=== PATIENT | male | born 1955 | race Caucasian/White ===

== ENCOUNTER 2024-07-16 15:45 | Outpatient (CLI) | payer MEDICARE, BC, SELFPAY ==
--- NOTE | ~2024-07-16 | CT_ITS ---
EXAMINATION: CT knee RT wo con DATE: 07/16/2024 16:00 INDICATION: Broken internal joint prosthesis at the right knee TECHNIQUE: High resolution computed tomography (CT) of the right knee was performed without intraveno us contrast. Additional sagittal and coronal reconstructions were performed. Automated exposure contr ol and iterative reconstruction technique were employed. The dose-length product was 435.91 mGy-cm. COMPARISON: None FINDINGS: Medial unicompartmental arthroplasty at the right knee. The alignment of the axis of the tibial compo nent is rotated 13 degree externally relative to the axis of the femoral component. Increased lucency underlying the posterior aspect of the tibial component through which passes bridging bone spicules arguing against loosening. There is no abnormal lucency along the margin of the femoral component. Th ere is a large infiltrate appearing lytic lesion with narrow zone of transition with thin corticated margins occupying the majority the posterior half of the lateral femoral condyle which measures 5.1 x 4.1 x 3.7 cm. There is interruption of the overlying lateral cortex of the femoral condyle near the expected site of insertion of the popliteal tendon and fibular collateral ligament suggests this repr esents a large intraosseous ganglion cyst. No fracture. Subtle chondrocalcinosis is seen at the later al compartment. Mild osteoarthritis in the medial and patellofemoral compartments and at the proximal tibiofibular articulation. Minimal knee joint effusion at the suprapatellar pouch. IMPRESSION: 1. Right knee medial unicompartmental arthroplasty with some increased lucency at the posterior donte n of the tibial component but without evident loosening. 2. Large likely intraosseous ganglion cyst occupying the majority of the posterior half of the latera l femoral condyle. 2. Chondrocalcinosis at the lateral compartment with mild osteoarthritis in the medial and lateral co mpartments. Reviewed, dictated and finalized at location A. IMPRESSION: 1. Right knee medial unicompartmental arthroplasty with some increased lucency at the posterior margin of the tibial component but without evident loosening. 2. Large likely intraosseous ganglion cyst occupying the majority of the teacher assistant ior half of the lateral femoral condyle. 2. Chondrocalcinosis at the lateral compartment with mild osteoarthritis in the medial and lateral compartments.
--- OUTSIDE RECORDS SUMMARY | 2024-07-16 15:48 | XMS_ITS | Data Portability ---
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 Recent endoscopy showed grade 1 esophageal varices with no high risk stigmata for bleeding. There were no other bleeding lesions in the past. Patient felt dizzy and lightheaded when he had the hematemesis and subsequent melena. He is somewhat better today, stable, not orthostatic, although appears currently pale. On examination patient was alert and oriented x3, not in apparent distress, well groomed, normal apparent judgment and memory. Moist mucous membranes with pale conjunctiva and anicteric sclera. No respiratory distress. Abdomen non-distended. No lower extremity edema. Skin is dry. Normal affect. Assessment/Андрей n: Hematemesis and melena, upper GI bleeding. Given absence of any findings on endoscopy recently except for grade 1 esophageal varices, a repeat endoscopy will be done and if again no bleeding lesions are found, varices would be banded as there would be the most likely culprit for this recurrent upper GI bleeding. However, repeat EGD might show a lesion not seen on previous endoscopy and then it would be treated accordingly. Patient has been n.p.o. and he is not on any blood thinners, EGD is scheduled for later today. fernanda Not available 03/15/2024 11:27:17 Plan of Treatment Reminders Order Date Submit Date Provider Last Modified By Organization Details Last Modified Time Details Appointments None record ed. Lab None record ed. Referral None record ed. Procedures None record ed. Surgeries None record ed. Imaging None record ed. Medication Orders None record ed. Patient TargetsNo targets recorded. Patient InstructionsNo instructions recorded. Reason for Referral None Reported. Results Created Date Observation Date Name Description Value Unit Range Abnormal Flag Note LastModifiedBy Organization Detail LastModifiedTime 03/15/1903/15/2024 CBC CBC Not Available [facility] [address] [place] [address], [id number], 03/15/2024 15:54:43 03/15/19 25 03/15/2024 CBC WBC 3.6 K/uL 4.8- 10.8 low Not Available [facility] [address] [place] [address], [id number], 03/15/2024 15:54:43 03/15/1903/15/2024 CBC RBC 2.34 M/uL 4.70-6 .10 low Not Available [facility] [address] [place] [address], [id number], 03/15/2024 15:54:43 03/15/19 25 03/15/2024 CBC HGB 6.3 g/dL 14.0-1 8.0 critical low Not Available [facility] [address] [place] [address], [id number], 03/15/2024 15:54:43 03/15/1903/15/2024 CBC HCT 19.3 % 42.0-5 2.0 low Not Available [facility] [address] [place] [address], [id number], 03/15/2024 15:54:43 03/15/1903/15/2024 CBC MCV 82.5 fL 80.0-9 4.0 Not Available [facility] [address] [place] [address], [id number], 03/15/2024 15:54:43 03/15/1903/15/2024 CBC MCH 26.9 pg 27.0- 31.0 low Not Available [facility] [address] [place] [address], [id number], 03/15/2024 15:54:43 03/15/19 25 03/15/2024 CBC MCHC 32.6 g/dL 32.0-3 6.0 Not Available [facility] [address] [place] [address], [id number], 03/15/2024 15:54:43 03/15/19 25 03/15/2024 CBC RDW-SD 62.3 fL 35.1 - 46.3 high Not Available [facility] [address] [place] [address], [id number], 03/15/2024 15:54:43 03/15/19 25 03/15/2024 CBC plt 100 K/uL 130-40 0 low Not Available [facility] [address] [place] [address], [id number], 03/15/2024 15:54:43 03/15/19 25 03/15/2024 CBC MPV 11.1 fL 7.5- 11.8 Moder ate targe t cells Sligh t aniso cytos is Sligh t hypoc hroma shanell Sligh t polyc hroma shanell Plate lets appea r decre ased Not Available [facility] [address] [place] [address], [id number], 03/15/2024 15:54:43 03/15/19 25 03/15/2024 hepat ic funct ion panel , serum liver function panel Not Available [facility] [address] [place] [address], [id number], 03/15/2024 16:01:03 03/15/19 25 03/15/2024 hepat ic funct ion panel , serum albumin 3.4 g/dL 3.5-5. 3 low Not Available [facility] [address] [place] [address], [id number], 03/15/2024 16:01:03 03/15/19 25 03/15/2024 hepat ic funct ion panel , serum direct bilirubin 0.7 mg/dL 0.1-0. 5 high Not Available [facility] [address] [place] [address], [id number], 03/15/2024 16:01:03 03/15/19 25 03/15/2024 hepat ic funct ion panel , serum indirect bilirubin 1.0 mg/dL 0.1-0. 6 high Not Available [facility] [address] [place] [address], [id number], 03/15/2024 16:01:03 03/15/19 25 03/15/2024 hepat ic funct ion panel , serum total bilirubin 1.7 mg/dL 0.2-1. 0 high Not Available [facility] [address] [place] [address], 72674, 03/15/2024 16:01:03 03/15/19 25 03/15/2024 hepat ic funct ion panel , serum ALP 102 U/L 44 - 127 Not Available [facility] [address] [place] [address], 30671, 03/15/2024 16:01:03 03/15/19 25 03/15/2024 hepat ic funct ion panel , serum AST (SGOT) 46 U/L 10-40 high Not Available [facility] [address] [place] [address], 21415, 03/15/2024 16:01:03 03/15/19 25 03/15/2024 hepat ic funct ion panel , serum ALT (SGPT) 32 U/L 8-35 Not Available [facility] [address] [place] [address], 42108, 03/15/2024 16:01:03 03/15/19 25 03/15/2024 hepat ic funct ion panel , serum total protein 5.7 g/dL 6.4-8. 3 low Not Available [facility] [address] [place] [address], [address], 03/15/2024 16:01:03 03/15/19 25 03/15/2024 PT/IN R protime panel 2 Not Available [facility] [address] [place] [address], 49373, 03/15/2024 16:24:15 03/15/19 25 03/15/2024 PT/IN R prothrombin 14.7 secon ds 9.7-12 .2 high Not Available [facility] [address] [place] [address], 86[address], 03/15/2024 16:24:15 03/15/19 25 03/15/2024 PT/IN R INR 1.3 INR INTER PRETA TION 2.0-3 .0 FOR DEEP VEIN THROM BOSIS PULMO NARY EMBOL ISM ACUTE MYOCA RDIAL INFAR CTION ATRIA L FIBRI LLATI ON 3.0-4 .5 FOR MECHA NICAL HEART VALVE S Not Available [facility] [address] [place] [address], 898[address], 03/15/2024 16:24:15 03/15/19 25 03/19/2024 surgi danya patho logy study tissue exam biopsy [facility] [address],[facility] [place] [address] Ph. [phone] Marilee Sam MD, PhD, Medic al Direc tor CHAMP BARROW MD nt: MARILEE BRAND [facility] e ID: [id number] Repor t Statu s: Final :0 1955 Case #: [id number] Age: 68 Y Gende r: M Date Colle cted: 03/15 MRN # : [id number] Date Recei anusha: 03/15 Repor jeanette Date: 03/19 FINAL DIAGN OSIS: Stoma ch, biops y: - Mild chron ic inact fabian gastr itis with focal intes tinal metap lasia - Negat fabian for H. pylor i by immun ohist ochem ical stain Elect thais Guerrero ied by Chun Chin MD Elect thais manning 03/19 17:52 SPECI MEN SOURC E: Stoma ch, biops y GROSS DESCR IPTIO N: The speci men conta iner( s) and requi sitio n have the same patie nt name. Recei anusha in 10% neutr al buffe red forma sherly for forma sherly-f ixed paraf fin-e mbedd ed secti ons label ed A, gastr ic biops y rule out H. pylor i are four fragm ents of andres- wong soft tissu e that are 0.3-0 .6 cm in great est dimen aneudy. The speci men is entir jennie submi tted for histo logic study in one casse tte. CLINI DANYA INFOR MATIO N: Upper GI bleed ing, melen a. Not Available [facility] [address] [place] [address], [id number], 03/19/2024 18:55:37 03/15/19 25 03/15/2024 gluco se, finge rstic k, blood Blood Glucose: mg/dl 108 Not Available Admini str[facility] ([facility]) [address] [place] [address], [phone], 03/15/2024 14:37:27 03/15/19 25 03/15/2024 gluco se, finge rstic k, blood Blood Glucose: mg/dl 95 Not Available Admini strativ e Office (Mi) [address] [place] [address], [phone], 03/15/2024 14:02:50 04/29/19 25 04/29/2024 gluco se, finge rstic k, blood Blood Glucose: mg/dl 160 Not Available Admini strativ e Office ([facility]) [address] [place] [address], [phone], 04/29/2024 13:45:38 04/29/19 25 04/29/2024 gluco se, jessi rsnando k, blood Blood Glucose: mg/dl 164 Not Available Admini strativ e Office (Mi) [address] [facility], [place], [phone], 04/29/2024 12:36:22 05/24/19 25 09/03/2022 CT, abdom en + pelvi s, w/o contr ast No observ ation record ed. [email or web address] Not Available 2024 07:21:59 05/24/19 25 04/10/2023 upper endos copy (EGD) with colon oscop y (PROC ) No observ ation record ed. [email or web address] Not Available 2024 07:27:52 Result Notes None recorded. Problems Name Problem SNOMED Code Status Onset Date Resolution Date Notes Provider Name and Address Organization Details Recorded Time Black feces 544082331 Active 2023 Tosin Pisano APRN, DNP, [employer] [address] [place] [address], [phone], [facility] 4 16:57:48 Anemia 427613408 Active 2023 Fina [facility] 4 17:15:03 Melena 7008242 Active 2023 [facility] 4 17:14:41 Iron deficiency anemia 82070700 Active 2023 Tosin Pisano APRN, DNP, [employer] [address] [place] [address], [phone], [facility] 4 18:39:13 Gastroesophage al reflux disease 115500885 Active 2023 Tosin Pisano APRN, DNP, [employer] [facility] [address] [place] [address], [phone], [facility] 4 18:41:52 Hematemesis 5033679 Active 2024 Deirdre German turk, [facility] 5 11:25:26 Bleeding esophageal varices 07095098 Active 2024 [facility] 13:23:50 Problem Notes None recorded. Procedures Surgical History None recorded. Imaging Results Imaging Date Name Status LastModified by Organiz ation Details LastModified Time 09/03/2022 CT, abdomen + pelvis, w/o contrast completed Information not available 05/23/2024 07:21:59 04/10/2023 upper endoscopy (EGD) with colonoscopy (PROC) completed Information not available 05/23/2024 07:27:52 Procedure Notes None recorded. Medical Equipment None Reported. Allergies No known drug allergies Medications Name Sig Start Date Stop Date Status Note LastModified by Organization Details LastModified Time accu-chek ollie guide active Not Available Not Available Not Available metformin 500 mg tablet active Not Available Not Available No t Available carvedilol 6.25 mg tablet active Not Available Not Available Not Available fluconazole 150 mg tablet 01/04 completed Not Available Not Available Not Available amoxicillin 875 mg tablet 1 (one) tablet by mouth two times daily 01/04 completed Not Available Not Available Not Available pantoprazole 40 mg tablet,delaye d release 01/04 completed Not Available Not Available Not Available furosemide 20 mg tablet active Not Available Not Available No t Available cefuroxime axetil 500 mg tablet active Not Available Not Available Not Available levofloxacin 750 mg tablet TAKE 1 TABLET BY MOUTH DAILY 01/04 completed Not Available Not Available Not Available fluticasone propionate 50 mcg/actuation nasal spray,suspens ion 01/04 completed Not Available Not Available Not Available GaviLyte-G 236 gram-22.74 gram-6.74 gram-5.86 gram oral solution 01/04 completed Not Available Not Available Not Available Accu-Chek Fastclix Lancet Drum active Not Available Not Available Not Available Vitals Date Recorded Body height Body mass index (BMI) Body weight Heart rate Oxygen saturation Oxygen saturation in Arterial blood by Pulse oximetry Systolic blood pressure Diastolic blood pressure Provider Name and Address Organization Details Last Updated DateTime 5 185.42 cm 32.8 kg/m2 041620. 06 g 64 /min 97 % 97 % 126 mm[Hg] 60 mm[Hg] Fina Moreno [facility] 5 10:55:02 Social History Question Answer Notes LastModified by Organizat ion Details LastModified Time Tobacco Smoking Status Never Smoker Fina Moreno [facility] 03/15/2024 10:55:12 Smokeless Tobacco? Currently Chews Tobacco gayle Information not available 01/02/2024 Sex: Unknown Functional Status None recorded. Mental Status None recorded. Family History Nothing Reported. Medical History No medical history recorded. Past Encounters Encounter ID Performer Location Encounter Start Date Encounter Closed Date Diagnosis/Indication Diagnosis SNOMED-CT Code Diagnosis ICD10 Code Diagnosis Note [id number] Tosin Pisano, CLINICAL DATA RESEARCH, DNP, [employer] [facility] Gastroent erology ([place]) [address] [place] [phone] 01/02/2024 15:31:42 01/02/2024 17:33:07 Black feces 312121765 K92.1 Iron defic iency anemia 63241176 D50.9 Gastroesop hageal reflux disease 039337741 K21.9 [id number] Champ Henderson MD [facility] Gastroent erology ([place]) [address] [place] [phone] 01/05/2024 14:43:52 01/08/2024 12:10:59 [id number] MD [facility] [address] [place] [phone] 3 01/05/2024 14:43:50 01/12/2024 15:54:15 [id number] Champ Henderson MD [address] Gastroent erology ([place]) [address] [place] [phone] 3 03/15/2024 10:32:20 03/15/2024 12:09:28 [id number] MD Nicol Ramos [facility] S [address] [place] [phone] 3 03/15/2024 12:14:51 03/20/2024 13:41:04 [id number] Champ Henderson MD [facility] Gastroent erology ([place]) [address] [place] [address], [address] [place] [phone] 03/15/2024 12:14:52 03/20/2024 11:45:58 [id number] Champ Henderson MD [facility] Gastroent erology ([place]) [address] [place] [address], [address] [place] [phone] 3 04/29/2024 11:48:17 05/02/2024 09:12:46 [id number] Cash Cohen MD [facility] GI Anesthesi a S [address] [place] [phone] 3 04/29/2024 11:48:15 05/08/2024 10:03:50 Health Concerns Section Related Observation LastModified by Organization Detai ls LastModified Time None Recorded Concern Status LastModified by Organization Details LastModified Time None Recorded Advance Directives Directive None Recorded Payers Insurance Date Sequence Insurance Name Policy Number Policy Moran Covered Member ID Moran Member ID Guarantor Name 05/08/2024 2 [place] [id number] Marilee Nicholson Griffiths [id number] Marilee Valero Griffiths 04/24/2024 1 [place] Marilee Nicholson Griffiths [id number] Marilee Valero Griffiths Notes Date Note Type Note Provider Name and Address Organization Details Recorded Time 5 text/html [facility] PRE-ANESTHETIC EVALUATIONReported bypatient.Reason for Visit:PROPOSED PROCEDURE: EGD with Dialatation; SURGEON: Beatriz; PREOP DIAGNOSIS: Dysphagia. Review of Systems General:Exercise tolerance moderate; Denies SOB, AMBROCIO, PND; Denies chest pain or chest tightness; Obesity Cardiac:Hypertension Endo:NIDDM Prior Anesthetic Complication:no history of anesthesia complications Family Anesthetic Hx:no history of anesthesia complications Physical Exam: AirwayWNL; MP II TeethWNL NeckWNL; Full range of motion CardiovascularRegular rate and rhythm RespiratoryClear to auscultation bilaterally GastrointestinalNPO status >6 hrs solids, >2 hrs clear liquids Vital Signs:Vital signs reviewed. Please refer to nursing preop note for values Assessment:ASA PS: II Plan:MAC Discussion:I have discussed with the patient the anesthetic plan, alternatives, pertinent risks, and complications; including but not limited to PONV, dental injury, sore throat, AK, stroke, etc. All questions were answered. Patient verbalize(s) understanding and agree(s) to proceed. Niurka Fuentes MD [address] [place] [address], [phone], [facility] 03/15/2024 13:32:17 5 text/html Reason for visit: Referring provider: Previous history of MRSA {{Y N*}} Previous history VRE {{Y N*}} Previous history of Cdiff {{Y N*}} Blood Thinners? {{Y N*}} {{If yes, list medications:}} Diabetic? {{Y* N}} {{If yes, list medications: metformin# }} Latex Allergy? {{Y N*}} Champ Henderson MD [facility], [phone] 03/15/2024 11:27:35 5 text/html [facility] OP HPIReported bypatient.The history and physical review:The history and physical dated has been reviewed, the patient has been examined and no change has occurred in the patient's condition since the history and physical was completed. Pre-Procedure Diagnosis:I85.01 Date of Procedure:04/29/2024 Proposed Procedure/Surgery:EGD Physician Performing the Procedure:Champ Henderson Proposed Anesthetic:Monitored Care Chief Complaint:I85.01 Esophageal varices with bleeding Allergies:NKDA Tobacco, Alcohol or Drug use:No Tobacco use; No Drug use Champ Henderson MD [address] [place] [address], [phone], [facility] 04/29/2024 12:06:57 5 text/html [facility] PRE-ANESTHETIC EVALUATIONReported bypatient.Reason for Visit:PROPOSED PROCEDURE: EGD; SURGEON: Beatriz; PREOP DIAGNOSIS: Esophageal varices with bleeding- General:Exercise tolerance moderate; Denies SOB, AMBROCIO, PND; Denies chest pain or chest tightness; Obesity Cardiac:No Hx of CAD; Hypertension Pulmonary:Respiratory system at baseline Endo:NIDDM Prior Anesthetic Complication:no history of anesthesia complications Family Anesthetic Hx:no history of anesthesia complications Physical Exam: AirwayMP III; Limited mouth opening; Moustache TeethWNL NeckFull range of motion; Thick neck circumference CardiovascularRegular rate and rhythm RespiratoryClear to auscultation bilaterally; No wheeze noted GastrointestinalNPO status >6 hrs solids, >2 hrs clear liquids Vital Signs:Vital signs reviewed. Please refer to nursing preop note for values Assessment:ASA PS: II Plan:MAC Discussion:I have discussed with the patient the anesthetic plan, alternatives, pertinent risks, and complications; including but not limited to PONV, dental injury, sore throat, AK, stroke, etc. All questions were answered. Patient verbalize(s) understanding and agree(s) to proceed. Rustam Cohen MD [address] [place] [address], [phone], [facility] 04/29/2024 12:16:07
--- OUTSIDE RECORDS SUMMARY | 2024-07-16 15:48 | XMS_ITS | Clinical Summary ---
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 Active Misc. Devices (COMMODE 3-IN-1) MiscIndications :Injury of left ankle, initial encounter,Left fibular fracture,Orthop edic aftercare Use daily. Expected length of use minimum of 6 weeks. Ht. 6f2i Wt: 246lb 1 each 2 Active Misc. Devices (WHEELCHAIR) MiscIndications :Injury of left ankle, initial encounter,Left fibular fracture,Orthop edic aftercare Use daily. Expected length of use minimum of 6 weeks. Elevating leg lift required to decrease edema to lower extremity. Ht. 6f2i Wt: 246lb 1 each 2 Active Misc. Devices (WHEELCHAIR) MiscIndications :Injury of left ankle, initial encounter,Left fibular fracture,Orthop edic aftercare Use daily. Expected length of use minimum of 6 weeks. Standard wheelchair with elevating leg lift on LEFT side required to decrease edema to lower extremity. Ht. 6f2i Wt: 246lb 1 each 2 Active metFORMIN 500 MG tablet Take 1 tablet (500 mg total) by mouth daily with breakfast. 2 Active carvedilol (COREG) 6.25 MG tablet Take 2 tablets (12.5 mg total) by mouth 2 (two) times daily. Active pantoprazole EC (PROTONIX) 40 MG tablet Take 1 tablet (40 mg total) by mouth 2 (two) times daily before meals. 60 tablet 5 Active sucralfate (CARAFATE) 1 GM/10ML suspension Take 10 mLs (1 g total) by mouth 4 (four) times daily before meals and nightly. 420 mL 5 Active Active Problems Problem Noted Date Diagnosed Date GI bleed 03/15/2024 Thrombocytopenia 04/06/2022 Other specified anemias 04/06/2022 Other cirrhosis of liver (CMS/HCC [facility]/HCC) 04/06 Aftercare following surgery 06/04/2021 Encounters Date Type Department Care Team Description 07/08/2024 2:30 PM CDT Office Visit [place] [address] [address] Lydia Arana APNP Follow Up (Thrombocytopenia/) ; Lab Results 07/08/2024 1:30 PM CDT - 07/08/2024 11:59 PM CDT Hospital Encounter [facility] [address] [address] Lydia Arana APNP Discharge Disposition: Home or Self Care (Routine Discharge) 07/08/2024 Orders Only [facility] [place] [address] Seamus Perkins MD 07/08/2024 Orders Only [facility] [place] [address] Seamus Perkins MD 07/08/2024 Travel 05/13/2024 Orders Only [facility] [place] [address] [address] Lydia Arana APNP 05/13/2024 Telephone [facility] [place] [address] [address] Seamus Perkins MD Reschedule 04/22/2024 11:[address] CLERK - 04/22/2024 3:[address] CLERK [facility] [place] [address] Bere Canales, DO Hypotension Discharge Disposition: Home or Self Care (Routine Discharge) 04/22/2024 Travel from Last 3 Months Family History Medical History Relation Comments No Known Problems Father Cancer Mother lung Relation Status Comments Father Mother Social History Tobacco Use Types Packs/Day Years Used Date Smoking Tobacco: Never Smokeless Tobacco: Current Chew Tobacco Cessation:Ready to Q uit: Not Asked; Counseling Given: Not Answered Alcohol Use Standard Drinks/Week Comments Yes 0 (1 standard drink = 0.6 oz pur e alcohol) 4-5 beers a day B1300 Health Literacy Answer Date Recor ded How often do you need to hav e someone help you when you read instructions, pamphlets, or other written material from your doctor or pharmacy? Never 03/16/2024 [facility] Utilities Answer Date Recorded In the past 12 months has e Keep Your Pharmacy Open, gas, oil, or water [facility] threatened to shut off services in your home? No 03/16/2024 Humiliation, Afraid, Rape, and Kick questionnair e Answer Date Recorded Within the last year, have y ou been afraid of your partner or ex-partner? No 03/16/2024 Within the last year, have y ou been humiliated or emotionally abused in other ways by your partner or ex-partner? No Within the last year, have y ou been kicked, hit, slapped, or otherwise physically hurt by your partner or ex-partner? No 03/16/2024 Within the last year, have y ou been raped or forced to have any kind of sexual activity by your partner or ex-partner? No 03/16/2024 Social Connection and Isolat ion Panel [NHANES] Answer Date Recorded In a typical week, how many times do you talk on the phone with family, friends, or neighbors? More than three times a week 03/16/2024 How often do you get togethe r with friends or relatives? More than three times a week 03/16/2024 How often do you attend chur ch or nondenominational services? Never 03/16/2024 Do you belong to any clubs o r organizations such as moravian groups, unions, fraternal or athletic groups, or school groups? No 03/16/2024 How often do you attend meet ings of the clubs or organizations you belong to? Never 03/16/2024 Are you , , di vorced, , never , or living with a partner? 03/16/2024 AUDIT-C Answer Date Recorded Q1: How often do you have a drink containing alcohol? Never 03/16/2024 Q2: How many drinks containi ng alcohol do you have on a typical day when you are drinking? Patient does not drink Q3: How often do you have si x or more drinks on one occasion? Never 03/16/2024 Overall Financial Resource Strain (CARDIA) Answe r Date Recorded How hard is it for you to pa y for the very basics like food, housing, medical care, and heating? Not hard at all 03/16/2024 [facility] [place] of Occupat ional Health - Occupational Stress Questionnaire Answer Date Recorded Do you feel stress - tense, restless, nervous, or anxious, or unable to sleep at night because your mind is troubled all the time - these days? Not at all 03/16/2024 Hunger Vital Sign Answer Date Recorded Within the past 12 months, y ou worried that your food would run out before you got the money to buy more. Never true 03/16/19 25 Within the past 12 months, t he food you bought just didn't last and you didn't have money to get more. Never true 03/16/2024 PRAPARE - Transportation Answer Date Re corded In the past 12 months, has l ack of transportation kept you from medical appointments or from getting medications? No 03/06 In the past 12 months, has l ack of transportation kept you from meetings, work, or from getting things needed for daily living? No 03/16/2024 Housing Stability Vital Sign Answer Wayne e Recorded In the last 12 months, was t here a time when you were not able to pay the mortgage or rent on time? No 03/16/2024 In the past 12 months, how m any times have you moved where you were living? 0 03/16/2024 At any time in the past 12 m [facility], were you homeless or living in a jail (including now)? No 03/16/2024 Sex and Gender Information Value Date Recorded Sex Assigned at Male 04/22/2024 11:[address] CLERK Legal Sex Male 9:[address] CLERK Gender Identity Not on file Sexual Orientation Not on file Last Filed Vital Signs Vital Sign Reading Time Taken Comments Blood Pressure 149/76 07/08/2024 2:09 PM CDT Pulse 69 07/08/2024 2:09 PM CDT Temperature 36 C (96.8 F) 07/08/2024 2:09 PM CDT Respiratory Rate 20 07/08/2024 2:09 PM CDT Oxygen Saturation 100% 07/08/2024 2:09 PM CDT Inhaled Oxygen Concentration - - Weight 110.4 kg (243 lb 6.4 oz) 07/08/2024 2:09 PM CDT Height 188 cm (6' 2 ) 07/08/2024 2:09 PM CDT Body Mass Index 31.25 07/08/2024 2:09 PM CDT Plan of Treatment Upcoming Encounters Date Type Department Care Team (Late st Contact Info) Description 10/09/2024 9:00 AM CDT Appointment [facility] [place] [address] Seamus Perkins MD [address], [place] [id number] 01/08/2025 1:[address] CLERK Appointment [facility] [place] [address] [address] Seamus Perkins MD [address], [place] [id number] 01/08/2025 2:[address] CLERK Office Visit [facility] [place] [address] Seamus Perkins MD [address], [place] [address] Health Maintenance Due Date Last Done Comments DTaP, Tdap and Td Vaccines ( 1 - Tdap) 1974 Pneumococcal Vaccine: 50+ Years (1 of 2 - PCV) 1974 Zoster Vaccines (1 of 2) 2005 RSV Immunization or 60+ Years (1 - Risk 60-74 years 1-dose series) 2015 Annual Medicare Wellness Visit 2020 COVID-19 Vaccine (2 - 2023-2 5 season) 2023 03/16/2021 Colorectal Cancer Screening Colonoscopy (10 Years) 10/23/2030 10/23/2020, 10/23/2020 Hepatitis C Completed 02/20/2023, 02/20/2023 Meningococcal B Vaccine Aged Out No l onger eligible based on patient's age to complete this topic Meningococcal Vaccine Aged Out No mary patric eligible based on patient's age to complete this topic RSV Immunizations Under 20 Months Aged Out No longer eligible b ased on patient's age to complete this topic Medical Devices Implanted Type Area Director Workers Compensation Device Identifier Shelf Expiration Date Model / Serial / Lot Knee Components Knee Components Plate [id number] Titanium 5 Hole Lock Low Profile Variax Bone 16x1.3mm Fibula Lateral Nonsterile - [id number] Implanted:Qty: 1 on 05/24/2021 by Grant Powell MD at [facility] Plate Left: Ankle [employer] [id number] / / Screw Locking Velarde T10 3.5 X 16mm - [id number] Implanted:Qty: 4 on 05/24/2021 by Grant Powell MD at [facility] Screw Left: Ankle [employer]AR[employer] [id number] / / Screw Locking Velarde T10 3.5 X 18mm - [id number] Implanted:Qty: 1 on 05/24/2021 by Grant Powell MD at [facility] Screw Left: Ankle [employer] Z[employer] [id number] / / Screw Bone 3.5mm 16mm Variax Titanium T10 Full Thread Foot Ankle Self Tap Nonsterile Yellow Lock Plate System - [id number] Implanted:Qty: 3 on 05/24/2021 by Grant Powell MD at [facility] Screw Left: Ankle [employer] Z[employer] [id number] / / Cement Bone 20/10 Fast Set Depuy - [id number] Implanted:Qty: 1 on 05/08/2018 by Buddy Flynn MD at [facility] Left: Knee [employer] - A [employer] M[employer]LL[employer] 09/02/2020 [id number] / / [id number] Screw Headless Mis Denise 48mm - [id number] Implanted:Qty: 1 on 05/08/2018 by Buddy Flynn MD at [facility] Left: Knee [employer] 11/04/2027 [id number] / / [id number] Screw Headed Denise 48mm - [id number] Implanted:Qty: 1 on 05/08/2018 by Buddy Flynn MD at [facility] Left: Knee [employer] 12/04/2027 [id number] / / [id number] Persona Partianl Knee System Vivacit-E Highly Crosslinked Polyethylene Partial Articular Surface Left Medial Implanted:Qty: 1 on 05/08/2018 by Buddy Flynn MD at [facility] Left: Knee 02/02/2023 [id number] / / [id number] Persona Partial Knee System Partial Tibial Cemented Size G Left Medial Implanted:Qty: 1 on 05/08/2018 by Buddy Flynn MD at [facility] Left: Knee [employer] 07/04/2027 [id number] / / [id number] Persona Partial Knee System Partial Femur Cemented Size 6 Left Medial Implanted:Qty: 1 on 05/08/2018 by Buddy Flynn MD at [facility] Left: Knee [employer] 08/04/2027 [id number] / / [id number] Explanted Type Area Director Workers Compensation Device Identifier Shelf Expiration Date Model / Serial / Lot Persona Partial Knee System Articular Surface Chore Worker Tip Explanted:Qty: 1 on 05/08/2018 by Buddy Flynn MD at [facility] Left: Knee [employer] 09/02/2022 [id number] / / [id number] Drill Bit Ao Dai 2.6 Mm X 135 Mm Scaled Explanted:Qty: 1 on 05/24/2021 at [facility] Left: Ankle [id number] / / Procedures Procedure Name Priority Date/Time Associated Diagnosis Comments FERRITIN Routine 07/08/2024 1:56 PM CDT Thrombocytopenia IRON SAT PANEL (IRON,IBC,%SAT) Routine 07/08/2024 1:56 PM CDT Thrombocytopenia COMPREHENSIVE METABOLIC PANEL Routine 07/08/2024 1:56 PM CDT Thrombocytopenia CBC W/DIFF AUTOMATED Routine 07/08/2024 1:56 PM CDT Thrombocytopenia CTA CHEST PE PROTOCOL STAT 04/22/2024 1:[address] CLERK XR CHEST PORTABLE STAT 04/22/2024 11: [address] CLERK TYPE & SCREEN STAT 04/22/2024 11:[address] CLERK PRO-BRAIN NATRIURETIC PEPTIDE STAT 04/22/2024 11:[address] CLERK MAGNESIUM STAT 04/22/2024 11:[address] CLERK LACTIC ACID W REFLEX (SEPSIS) STAT 04/22/2024 11:[address] CLERK TROPONIN, QUANT STAT 04/22/2024 11:[address] CLERK HEPATIC FUNCTION PANEL STAT 11:[address] CLERK BASIC METABOLIC PANEL STAT 04/22/2024 11:[address] CLERK D-DIMER, QUANTITATIVE STAT 04/22/2024 11:[address] CLERK CBC W/DIFF AUTOMATED STAT 04/22/2024 11:[address] CLERK ECG 12-LEAD Routine 04/22/2024 11:[address] CLERK COLONOSCOPY 10/23/2020 7:48 AM CDT from Last 3 Months or Most Recently Relevant to Health Maintenance Results * IRON SAT PANEL (IRON,IBC,%SAT) (07/08/2024 1:56 PM CDT) IRON 131 65 - 175 MCG/DL 07/08/2024 3:04 PM CDT [facility] IRON BINDING CAPACITY 378 250 - 450 MCG/DL 07/08/2024 3:04 PM CDT [facility] IRON SATURATION 35 % 3:04 PM CDT [facility] Comment:REFERENCE RANGE NOT ESTABLISHED 07/08/2024 1:56 PM CDT us Lydia [facility] Final Res ult [facility] [address] [place] [address], * (ABNORMAL) COMPREHENSIVE METABOLIC PANEL (07/08/2024 1:56 PM CDT) SODIUM S/P/B 138 136 - 145 MMOL/L 07/08/2024 2:29 PM CDT [facility] POTASSIUM S/P/B 4.1 3.5 - 5.1 MMOL/L 07/08/2024 2:29 PM CDT [facility] CHLORIDE S/P/B 106 98 - 107 MMOL/L 07/08/2024 2:29 PM CDT [facility] CO2 26.9 21.0 - 32.0 MMOL/L 07/08/2024 2:29 PM CDT [facility] GLUCOSE 252(H) 70 - 99 MG/DL 07/08/2024 2:29 PM CDT [facility] Comment: FASTING GLUCOSE 100 TO 125 MG/DL IS CONSISTENT WITH IMPAIRED FASTING GLUCOSE. FASTING GLUCOSE >125 MG/DL IS CONSISTENT WITH DIABETES. RANDOM GLUCOSE >200 MG/DL WITH HYPERGLYCEMIC SYMPTOMS IS CONSISTENT WITH DIABETES. PER ADA GUIDELINES BUN 13 6 - 24 MG/DL 07/08/2024 2:29 PM CDT [facility] CREATININE S/P/B 0.74 0.70 - 1.30 MG/DL 07/08/2024 2:29 PM CDT [facility] CALCIUM S/P/B 9.0 8.4 - 10.5 MG/DL 07/08/2024 2:29 PM [facility] BILIRUBIN TOTAL S/P/B 2.3(H) 0.2 - 1.0 MG/DL 07/08/2024 2:29 PM [facility] Comment: THIS ASSAY IS NOT RECOMMENDED FOR PATIENTS UNDERGOING TREATMENT WITH ELTROMBOPAG DUE TO THE POTENTIAL FOR FALSELY ELEVATED RESULTS. ALKALINE PHOSPHATASE S/P/B 137(H) 45 - 115 U/L 07/08/2024 2:29 PM T [facility] AST 36 15 - 37 U/L 07/08/2024 2:29 PM [facility] ALT 35 16 - 63 U/L 07/08/2024 2:29 PM [facility] TOTAL PROTEIN S/P/B 6.9 6.4 - 8.2 G/DL 07/08/2024 2:29 PM [facility] ALBUMIN S/P/B 3.1(L) 3.4 - 5.0 G/DL 07/08/2024 2:29 PM [facility] ANION GAP 5.1 5.0 - 15.0 MMOL/L 07/08/2024 2:29 PM [facility] OSMOLALITY (CALC) 295 MOSM/KG 025 2:29 PM [facility] Comment:REFERENCE RANGE NOT ESTABLISHED GFR ESTIMATE >90 >89 ML/MIN/1. 73 M2 07/08/2024 2:29 PM [facility] GFR NOTES GFR REFERENCE S: 07/08/2024 2:29 PM [facility] Comment: THE ESTIMATED GFR IS CALCULATED USING THE 2020 CKD-EPI EQUATION. THE FOLLOWING CATEGORIES FOR GRADING RENAL FUNCTION ARE RECOMMENDED BY THE INTERNATIONAL SOCIETY OF NEPHROLOGY (KDIGO 2012 CLINICAL PRACTICE GUIDELINE). G1,NORMAL OR HIGH: >89 ml/min/1.73 m2 G2,MILDLY DECREASED: 60-89 ml/min/1.73 m2 G3A,MILDLY TO MODERATELY DECREASED: 45-59 ml/min/1.73 m2 G3B,MODERATELY TO SEVERELY DECREASED: 30-44 ml/min/1.73 m2 G4,SEVERELY DECREASED: 15-29 ml/min/1.73 m2 G5,KIDNEY FAILURE: <15 ml/min/1.73 m2 07/08/2024 1:56 PM CDT us Lydia [facility]ARCIANP [facility] Final Res ult [facility] [address] [place] [address], * (ABNORMAL) CBC W/DIFF AUTOMATED (07/08/2024 1:56 PM CDT) Only the most recent of2 resultswithin the time period is included. WBC 3.65(L) 4.00 - 10.80 x10'3/uL 07/08/2024 2:12 PM CDT [facility] RBC 3.79(L) 4.50 - 6.10 x10'6/uL 07/08/2024 2:12 PM CDT [facility] HGB 10.2(L) 13.0 - 18.0 G/DL 07/08/2024 2:12 PM CDT [facility] HCT 30.4(L) 37.0 - 52.0 % 07/08/2024 2:12 PM CDT [facility] MCV 80.2 78.0 - 100.0 FL 07/08/2024 2:12 PM CDT [facility] MCH 26.9(L) 27.0 - 31.0 PG 07/08/2024 2:12 PM CDT [facility] MCHC 33.6 33.0 - 36.0 G/DL 07/08/2024 2:12 PM CDT [facility] RDW 28.4(H) 11.5 - 14.5 % 07/08/2024 2:12 PM CDT [facility] PLT 86(L) 150 - 350 x10'3/uL 07/08/2024 2:12 PM CDT [facility] MPV RESULTS NOT AVAILABLE 7.4 - 10.4 FL 07/08/2024 2:12 PM CDT [facility] CBC COMMENT NORMAL REFERENCE RANGE NOT ESTABLISHED FOR THE PROPORTIONAL LEUKOCYTE DIFFERENTIAL. 07/08/2024 2:12 PM CDT [facility] NEUTROPHILS % 49.8 % 07/08/2024 2:34 PM CDT [facility] LYMPHOCYTES % 25.8 % 07/08/2024 2:34 PM CDT [facility] MONOCYTES % 16.7 % 07/08/2024 2:34 PM CDT [facility] EOSINOPHILS % 6.0 % 07/08/2024 2:34 PM CDT [facility] BASOPHILS % 1.4 % 07/08/2024 2:34 PM CDT [facility] IMMATURE GRANS % 0.3 % 07/09/19 25 2:34 PM CDT [facility] NRBC % 0.0 % 07/08/2024 2:34 PM CDT [facility] ABS. NEUTROPHILS 1.82 1.60 - 8.30 x10'3/uL 07/08/2024 2:34 PM CDT [facility] ABS. LYMPHOCYTES 0.94 0.80 - 4.70 x10'3/uL 07/08/2024 2:34 PM CDT [facility] ABS. MONOCYTES 0.61 0.00 - 1.50 x10'3/uL 07/08/2024 2:34 PM CDT [facility] ABS. EOSINOPHILS 0.22 0.00 - 0.40 x10'3/uL 07/08/2024 2:34 PM CDT [facility] ABS. BASOPHILS 0.05 0.00 - 0.20 x10'3/uL 07/08/2024 2:34 PM CDT [facility] ABS. IMMATURE GRANULOCYTES 0.01 0.00 - 0.03 x10'3/uL 07/08/2024 2:34 PM CDT [facility] ABS. NUCLEATED RBC'S 0.00 0.00 - 0.01 x10'3/uL 07/08/2024 2:34 PM CDT [facility] PLT MORPH. NORMAL 07/08/2024 2:34 PM CDT [facility] RBC MORPHOLOGY 2+ 07/08/2024 2:34 PM CDT [facility] Comment: HYPOCHROMASIA 2+ ANISOCYTOSIS 07/08/2024 1:56 PM CDT Lydia R Waltrip APNP LABORATORY Final Res ult Performing Organization Address [facility]/ZIP Co de Phone Number [facility] [address] [place] [id number], * FERRITIN (07/08/2024 1:56 PM CDT) FERRITIN 42.7 26 - 388 NG/ML 07/08/2024 2:29 PM CDT [facility] 07/08/2024 1:56 PM CDT Lydia R adRiseramiroip APNP LABORATORY Final Res ult Performing Organization Address [facility] de Phone Number [facility] [address] [place] [id number], * CTA CHEST PE PROTOCOL (04/22/2024 1:[address] CLERK) Anatomical Region Laterality Modality Chest Computed Tomogra phy 04/22/2024 1:[address] CLERK Impressions 04/22/2024 1:[address] CLERK IMPRESSION: 1. No acute intrathoracic process identified. Negative for pulmonary embolism as described. 2. Redemonstrated findings of cirrhosis. Referred By: Interpreted By: Emre Birmingham MD, 04/22/2024 1:37 PM Narrative 04/22/2024 1:[address] CLERK [address] [place] [address] Examination: CTA chest. Exam time: 1312 hours. Clinical history: Syncope. Dizziness. Hypotension. Elevated d-dimer. Comparison: Noncontrast CT of the abdomen and pelvis, 03/24/2023. Technique: Thin section spiral axial scans were acquired through the chest during the administration of intravenous contrast for evaluation of the great vessels. Coronal, sagittal and 3-D MIP coronal reconstructions were performed from the data set. A dose lowering technique was used for this procedure, which may include, but is not limited to, dose reduction techniques, automated exposure control, the use of iterative reconstruction and ALARA/Image Gently techniques. Findings: Motion and suboptimal bolus timing limit assessment of the pulmonary arteries beyond the main and lobar branches. Within this limitation, no pulmonary embolism is identified. There is minor atherosclerotic calcification of the aorta and arch vessels. The heart and great vessels are otherwise unremarkable. There is a punctate calcified right hilar lymph node, compatible with old granulomatous disease. No hilar or mediastinal adenopathy is identified. No endobronchial abnormality is identified. Allowing for the respiratory motion, the lungs are grossly clear. There is no pleural effusion or pneumothorax. The chest wall structures appear intact. The included sections through the upper abdomen show no acute process. Changes of cirrhosis are again evident. Procedure Note Emre Birmingham MD - 04/22/2024 [facility] [address] [place] [address] Examination: CTA chest. Exam time: 1312 hours. Clinical history: Syncope. Dizziness. Hypotension. Elevated d-dimer. Comparison: Noncontrast CT of the abdomen and pelvis, 03/24/2023. Technique: Thin section spiral axial scans were acquired through the chestduring the administration of intravenous contrast for evaluation of thegreat vessels. Coronal, sagittal and 3-D MIP coronal reconstructions wereperformed from the data set. A dose lowering technique was used for thisprocedure, which may include, but is not limited to, dose reductiontechniques, automated exposure control, the use of iterativereconstruction and ALARA/Image Gently techniques. Findings: Motion and suboptimal bolus timing limit assessment of thepulmonary arteries beyond the main and lobar branches. Within thislimitation, no pulmonary embolism is identified. There is minoratherosclerotic calcification of the aorta and arch vessels. The heartand great vessels are otherwise unremarkable. There is a punctatecalcified right hilar lymph node, compatible with old granulomatousdisease. No hilar or mediastinal adenopathy is identified. Noendobronchial abnormality is identified. Allowing for the respiratorymotion, the lungs are grossly clear. There is no pleural effusion orpneumothorax. The chest wall structures appear intact. The includedsections through the upper abdomen show no acute process. Changes ofcirrhosis are again evident. IMPRESSION: 1. No acute intrathoracic process identified. Negative for pulmonaryembolism as described. 2. Redemonstrated findings of cirrhosis. Referred By: Interpreted By: Emre Birmingham MD, 04/22/2024 1:37 PM us Bere Guzman Ally DO CT Final Re sult * XR CHEST PORTABLE (04/22/2024 11:[address] CLERK) Anatomical Region Laterality Modality Chest Radiographic Carolina ging 04/22/2024 11:[address] CLERK Impressions 04/22/2024 11:[address] CLERK IMPRESSION: No acute cardiopulmonary process identified. Referred By: Interpreted By: Emre Birmingham MD, 04/22/2024 11:39 AM Narrative 04/22/2024 11:[address] CLERK [address] [place] [address] Examination: Portable chest. Exam time: 1126 hours. Clinical history: Syncope. Comparison: None Technique: AP upright view. Findings: Allowing for projection and body habitus, the heart size is probably upper normal. Pulmonary vascularity is within normal limits. No acute infiltrates or effusions are identified. The visualized bony thorax is unremarkable for age. Procedure Note Emre Birmingham MD - 04/22/[address] [place] [address] Examination: Portable chest. Exam time: 1126 hours. Clinical history: Syncope. Comparison: None Technique: AP upright view. Findings: Allowing for projection and body habitus, the heart size isprobably upper normal. Pulmonary vascularity is within normal limits. Noacute infiltrates or effusions are identified. The visualized bony thoraxis unremarkable for age. IMPRESSION: No acute cardiopulmonary process identified. Referred By: Interpreted By: Emre Birmingham MD, 04/22/2024 11:39 AM us Bere Thomas Canales DO GENERAL IMAGING Final Re sult * LACTIC ACID W REFLEX (SEPSIS) (04/22/2024 11:[address] CLERK) LACTIC ACID VENOUS 1.5 0.4 - 2.0 MMOL/L 04/22/2024 12:[address] CLERK [facility] 04/22/2024 11:[address] CLERK us Berezenon Canales DO LABORATORY Final Re sult [facility] [address] [place] [address], * (ABNORMAL) PRO-BRAIN NATRIURETIC PEPTIDE (04/22/2024 11:[address] CLERK) PRO-B TYPE NATRIURETIC PEPTIDE 152(H) <125 PG/ML 04/22/2024 1:[address] CLERK [facility] Comment: CUT POINTS ESTABLISHED BY INTERNATIONAL COLLABORATIVE ON NT PROBNP (ICON) STUDY (2006). AGE INDEPENDENT: <300 PG/ML HAS A 99% NEGATIVE PREDICTIVE VALUE FOR EXCLUDING ACUTE CHF <50 YEARS: >450 PG/ML IS CONSISTENT WITH ACUTE CHF 50-75 YEARS: >900 PG/ML IS CONSISTENT WITH ACUTE CHF >75 YEARS: >1800 PG/ML IS CONSISTENT WITH ACUTE CHF IN PATIENTS WITH RENAL INSUFFICIENCY (GFR <60), >1200 PG/ML YIELDS A DIAGNOSTIC SENSITIVITY AND SPECIFICITY OF 89% AND 72% FOR ACUTE CHF. 04/22/2024 11:[address] CLERK us Bere Thomaspatric Shortcy DO LABORATORY Final Re sult Performing Organization Address City/[facility]/ZIP Co de Phone Number [facility] [address] [place] [id number], * TYPE & SCREEN (04/22/2024 11:[address] CLERK) ABO/RH A POSITIVE 04/22/2024 12:[address] CLERK [facility] ANTIBODY SCREEN NEGATIVE 04/22/2024 12:[address] CLERK [facility] SAMPLE EXPIRATION 04/25/2024,2 359 04/22/2024 12:32 PM [facility] 04/22/2024 11:[address] CLERK Bere Thomas Shortcy DO BLOOD BANK TEST ORDERABL ES Final Result Performing Organization Address [facility]/ZIP Co de Phone Number [facility] [address] [place] [address], * (ABNORMAL) BASIC METABOLIC PANEL (04/22/2024 11:[address] CLERK) SODIUM S/P/B 139 136 - 145 MMOL/L 04/22/2024 12:42 PM [facility] POTASSIUM S/P/B 4.1 3.5 - 5.1 MMOL/L 04/22/2024 12:42 PM [facility] CHLORIDE S/P/B 105 98 - 107 MMOL/L 04/22/2024 12:42 PM [facility] CO2 24.2 21.0 - 32.0 MMOL/L 04/22/2024 12:42 PM [facility] GLUCOSE 219(H) 70 - 99 MG/DL 04/22/2024 12:42 PM [facility] Comment: FASTING GLUCOSE 100 TO 125 MG/DL IS CONSISTENT WITH IMPAIRED FASTING GLUCOSE. FASTING GLUCOSE >125 MG/DL IS CONSISTENT WITH DIABETES. RANDOM GLUCOSE >200 MG/DL WITH HYPERGLYCEMIC SYMPTOMS IS CONSISTENT WITH DIABETES. PER ADA GUIDELINES BUN 12 6 - 24 MG/DL 04/22/2024 12:[address] CLERK [facility] CREATININE S/P/B 0.81 0.70 - 1.30 MG/DL 04/22/2024 12:[address] CLERK [facility] CALCIUM S/P/B 8.5 8.4 - 10.5 MG/DL 04/22/2024 12:42 PM [facility] ANION GAP 9.8 5.0 - 15.0 MMOL/L 04/22/2024 12:[address] CLERK [facility] OSMOLALITY (CALC) 294 MOSM/KG 025 12:49 PM [facility] Comment:REFERENCE RANGE NOT ESTABLISHED GFR ESTIMATE >90 >89 ML/MIN/1. 73 M2 04/22/2024 12:42 PM [facility] GFR NOTES GFR REFERENCE S: 04/22/2024 12:42 PM [facility] Comment: THE ESTIMATED GFR IS CALCULATED USING THE 2020 CKD-EPI EQUATION. THE FOLLOWING CATEGORIES FOR GRADING RENAL FUNCTION ARE RECOMMENDED BY THE INTERNATIONAL SOCIETY OF NEPHROLOGY (KDIGO 2012 CLINICAL PRACTICE GUIDELINE). G1,NORMAL OR HIGH: >89 ml/min/1.73 m2 G2,MILDLY DECREASED: 60-89 ml/min/1.73 m2 G3A,MILDLY TO MODERATELY DECREASED: 45-59 ml/min/1.73 m2 G3B,MODERATELY TO SEVERELY DECREASED: 30-44 ml/min/1.73 m2 G4,SEVERELY DECREASED: 15-29 ml/min/1.73 m2 G5,KIDNEY FAILURE: <15 ml/min/1.73 m2 04/22/2024 11:3 [address] CLERK us Bere Canales DO LABORATORY Final Re sult [facility] [address] [place] [address], * (ABNORMAL) HEPATIC FUNCTION PANEL (04/22/2024 11:[address] CLERK) BILIRUBIN TOTAL S/P/B 2.4(H) 0.2 - 1.0 MG/DL 04/22/2024 12:[address] CLERK [facility] Comment: THIS ASSAY IS NOT RECOMMENDED FOR PATIENTS UNDERGOING TREATMENT WITH ELTROMBOPAG DUE TO THE POTENTIAL FOR FALSELY ELEVATED RESULTS. BILIRUBIN DIRECT S/P/B 0.5(H) 0.0 - 0.2 MG/DL 04/22/2024 12:[address] CLERK [facility] ALKALINE PHOSPHATASE S/P/B 109 45 - 115 U/L 04/22/2024 12:[address] CLERK [facility] AST 32 15 - 37 U/L 04/22/2024 12:[address] CLERK [facility] ALT 29 16 - 63 U/L 04/22/2024 12:[address] CLERK [facility] TOTAL PROTEIN S/P/B 6.6 6.4 - 8.2 G/DL 04/22/2024 12:[address] CLERK [facility] ALBUMIN S/P/B 2.9(L) 3.4 - 5.0 G/DL 04/22/2024 12:42 PM [facility] 04/22/2024 11:3 [address] CLERK us Bere Canales DO LABORATORY Final Re sult [facility] [address] [place] [address], * (ABNORMAL) D-DIMER, QUANTITATIVE (04/22/2024 11:[address] CLERK) Pathologist [facility] D-DIMER 1,743(H) 0 - 500 ng{FEU}/mL 04/22/2024 12:[address] CLERK [facility] Comment: CALLED TO CRISTIAN BARRIOS RN ER AT 1221 BY READ BACK AND VERIFIED D-Dimer values less than or equal to 500 ng/mL FEU have a negative predictive value of >95% for exclusion of deep vein thrombosis and pulmonary embolism. In patients over 50 (who tend to have higher normal baseline D-Dimer values), recent studies suggest age-adjusted D-Dimer cutoff values (calculated as: age [years] x 10 ng/mL) result in equivalent outcomes and no additional false negative findings. 04/22/2024 11:[address] CLERK Berezenon Guzman Ally DO LABORATORY Final Re sult Performing Organization Address [facility]/ZIP Co de Phone Number [address] [address], * TROPONIN, QUANT (04/22/2024 11:[address] CLERK) TROPONIN I HIGH SENSITIVITY 12 0 - 76 ng/L 04/22/2024 12:[address] CLERK [facility] 04/22/2024 11:[address] CLERK Berezenon Canales DO LABORATORY Final Re sult Performing Organization Address [facility]/[place] Co de Phone Number [address] [address], * (ABNORMAL) MAGNESIUM (04/22/2024 11:[address] CLERK) MAGNESIUM 1.7(L) 1.8 - 2.4 MG/DL 04/22/2024 12:[address] CLERK [facility] 04/22/2024 11:3 [address] CLERK Berezenon Canales DO LABORATORY Final Re sult Performing Organization Address [facility]/[place] Co de Phone Number [address] [address], * ECG 12 lead (04/22/2024 11:[address] CLERK) 04/22/2024 11:[address] CLERK Narrative [facility] - 04/22/2024 3:[address] CLERK [address] [place] [address] Test Date: 2024-04-22 Pat Name: MARILEE GRIFFITHS Department: 3 Room: EXAM 101 Gender: Male 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 [address] Test Date: 2024-04-22 Pat Name: MARILEE AYE Department: 3 Room: EXAM 101 Gender: Male Obstetrics Nurse Practitioner: : 1955 Requested By: BERE CANALES Order Number: [id number] Reading MD: Juan Fu Measurements Intervals [place] Rate: 56 P: 39 TX: 166 QRS: 18 QRSD: 105 T: 43 QT: 461 QTc: 446 Interpretive Statements SINUS BRADYCARDIA F DEPUTY COURT CLERK us Bere Canales DO ECG ORDERABLES Final Re sult [facility] * COLONOSCOPY (10/23/2020 7:48 AM CDT) us Ole Rockwell MD GI PROCEDURE ORDERABLES Final Result from Last 3 Months or Most Recently Relevant to Health Maintenance Insurance [facility] MEDICARE Advance Directives Documents on File Type Date Recorded Patient Benzol Operator Expl anation Advance Directives and Living Will 04/11/2018 10:14 AM 09/05/2015 LIVING WILL Advance Directives and Living Will 09/15/2015 SHORT FORM POWER OF TOY PACKER * Full Code (Latest Code Status on File) Date Activated Date Inactivated Comments 03/15/2024 9:29 PM 03/17/2024 3:05 PM Care Teams Forging Roll Operator Relationship Specialty Start Date End Date Shyanne Paz APNP [address] [place] [address] PCP - General NURSE PRACTITIONER 02/24/23
--- OUTSIDE RECORDS SUMMARY | 2024-07-16 15:48 | XMS_ITS | Clinical Summary ---
Author Organization [facility] Address [address] [place] [address] Phone Care Team Providers Care Pile Header Name Role Phone Unavailable Primary Care Provider Unavailabl e Allergies No known active allergies Medications simvastatin (ZOCOR) 20 mg tablet Take 20 mg by mouth daily with supper. Active metFORMIN (GLUCOPHAGE) 500 mg tablet Take 500 mg by mouth 2 times daily with meals. 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 e 02/06/2019 Social History Tobacco Use Types Packs/Day Years Used Date Smoking Tobacco: Never Tobacco Cessation:Counseling Given: Not Answered Sex and Gender Information Value Date Recorded Sex Assigned at Not on file Legal Sex Male 2:03 PM MARKETING FORECASTER Gender Identity Not on file Sexual Orientation Not on file Last Filed Vital Signs Vital Sign Reading Time Taken Comments Blood Pressure - - Pulse - - Temperature - - Respiratory Rate - - Oxygen Saturation - - Inhaled Oxygen Concentration - - Weight 108.9 kg (240 lb) 02/05/2019 3:25 PM MARKETING FORECASTER Height 188 cm (6' 2 ) 02/05/2019 3:25 PM MARKETING FORECASTER Body Mass Index 30.81 02/05/2019 3:25 PM MARKETING FORECASTER Plan of Treatment Health Maintenance Due Date Last Done Comments DTAP/TDAP/TD VACCINES (1 - Tdap) 1974 COLORECTAL SCREENING 2000 Colorectal Cancer Screening 2000 FIT-DNA Q 3 years 2000 FIT/FOBT Q 1 year 2000 Flex Sig/CT Colonography Q 5 years 2000 PNEUMOCOCCAL VACCINE 50+ YEARS (1 of 1 - PCV) 02/21/20 06 ZOSTER VACCINE (1 of 2) 2005 INFLUENZA VACCINE (#1) 2023 RSV VACCINE (60+ or ) (1 - 1-dose 75+ series) 2030 Insurance * Guarantor: Loi Griffiths Account Type Relation to Patient Date of Phone Billing Address Personal/Family Self [address] BLUE ACCESS/TRUE BLUE PPO MEDICARE PART A AND B
--- OUTSIDE RECORDS SUMMARY | 2024-07-16 15:48 | XMS_ITS | Encounter Summary ---
Author Organization [place] Address [facility] [place] [address] Care Team Providers Care Humidifier Maintenance Worker Name Role Phone Mathieu Johnson MD Primary Care Provider [phone] Loi Briscoe MD Primary Care Provider [phone] Shyanne Paz Primary Care Provider [phone] Encounter Details Date Type Department Care Team (Late st Contact Info) Description 08/11/2018 Abstract [facility] CONVERSION [address] [place] [address] , Generic Conversion, Social History Tobacco Use Types Packs/Day Years Used Date Smoking Tobacco: Never Smokeless Tobacco: Current Chew Alcohol Use Standard Drinks/Week Comments Yes 0 (1 standard drink = 0.6 oz pur e alcohol) 4-5 beers a day Sex and Gender Information Value Date Recorded Sex Assigned at Male 04/22/2024 11:40 AM ALLERGY PHYSICIAN Legal Sex Male 9:50 PM ALLERGY PHYSICIAN Gender Identity Not on file Sexual Orientation Not on file documented as of this encounter Functional Status * RETIRED Are you deaf or do you have serious difficulty hearing Answer Date of Assessment Author Status 05/08/2018 8:13 AM ALLERGY PHYSICIAN Activ e documented as of this encounter Plan of Treatment Upcoming Encounters Date Type Department Care Team (Late st Contact Info) Description 10/09/2024 9:[address] [facility] [address] [place] [address] Seamus Perkins MD [address], [place] [address] 01/08/2025 1:45 PM ALLERGY PHYSICIAN Appointment [facility] [address] [place] [address] Seamus Perkins MD [address], [place] [address] 01/08/2025 2:00 PM ALLERGY PHYSICIAN Office Visit [facility] [address] [place] [address] Seamus Perkins MD [address] [place] [address] documented as of this encounter Visit Diagnoses Not on filedocumented in this encounter Additional Health Concerns Infection Onset Date Last Indicated Resolved Time COVID-19 Rule Out 10/20/2020 10/20/2020 10/20/2020 7:27 PM CDT COVID-19 Rule Out 05/21/2021 05/21/2021 05/21/2021 1:21 PM CDT documented as of this encounter Care Teams Humidifier Maintenance Worker Relationship Specialty Start Date End Date Mathieu Johnson MD [address] [place] [id number] PCP - General FAMILY PRACTICE 05/07/18 10/19/20 Loi Briscoe MD [address] [place] [address] PCP - General FAMILY PRACTICE 10/20/20 02/23/23 Shyanne Paz APNP [address] [place] [address] PCP - General NURSE PRACTITIONER 02/24/23 documented as of this encounter
--- OUTSIDE RECORDS SUMMARY | 2024-07-16 15:48 | XMS_ITS | Referral Summary ---
Author Organization [facility] Address [address] [place] [address] Care Team Providers Care Ink Maker Name Role Phone Shyanne Paz NP Primary Care Provider [phone] Encounters Date Type Department Care Team Description 07/16/2024 Results Follow-Up [facility] [address] [facility] [address] [place] [address] [place] [address] Lennie Mathews Alcoholic cirrhosis of liver without ascites (HCC) (Primary Dx); Liver lesion from Last 3 Months Allergies No known active allergies Medications metFORMIN (GLUCOPHAGE) 500 mg tabletIndication s:type 2 diabetes mellitus Take 1 tablet (500 mg total) by mouth every morning 2 Active multivitamin-iro n-folic acid 18-400 mg-mcg tabletIndication s:Vitamin Deficiency Prevention Take 1 tablet by mouth every morning Active pantoprazole DR (PROTONIX) 40 mg EC tabletIndication s:Stress Ulcer Prophylaxis Take 1 tablet (40 mg total) by mouth 2 (two) times a day 4 Active iron dextran complex 975 mg in sodium chloride 0.9% 0.9% 250 mL IVPBIndications: Iron Deficiency Anemia Infuse 975 mg into a venous catheter as needed Last dose 04/06/23 Active Accu-Chek Guide test strips strip 4 Active Accu-Chek Fastclix Lancet Drum misc 4 Active sucralfate (CARAFATE) suspension 1 gram/10 mL Take 10 mL (1 g total) by mouth 4 times daily 5 Active carvediloL (COREG) 6.25 mg tabletIndication s:Prevention of Bleeding Esophageal Varices,hyperten aneudy Take 2 tablets (12.5 mg total) by mouth 2 (two) times a day with meals Hasn't started yet 360 tablet 3 5 04/08/19 26 Active Active Problems Problem Noted Date Diagnosed Date Kidney stone 04/11/2023 Esophageal varices without bleeding 03/16/2023 Colon cancer screening 03/16/2023 Type 2 diabetes mellitus wit hout complication, without long-term current use of insulin 02/20/2023 Thrombocytopenia 04/06/2022 Other cirrhosis of liver 04/06/2022 Chronic pain of left ankle 12/02/2021 Chronic pain of left knee 02/06/2019 Social History Tobacco Use Types Packs/Day Years Used Date Smoking Tobacco: Former Cigarettes Q uit: 1977 Smokeless Tobacco: Former Chew Quit: 03/2023 AUDIT-C Answer Date Recorded Q1: How often do you have a drink containing alcohol? Never 04/12/2023 Q2: How many drinks containi ng alcohol do you have on a typical day when you are drinking? Patient does not drink Q3: How often do you have si x or more drinks on one occasion? Never 04/12/2023 Personal Safety Answer Date Recorded Have you ever been in or are you currently in a harmful physical or emotional relationship or is someone making you feel afraid or unsafe? Denies 04/18/2023 Sex and Gender Information Value Date Recorded Sex Assigned at Not on file Legal Sex Male 10:15 PM SAND MOLDER Gender Identity Not on file Sexual Orientation Not on file Last Filed Vital Signs Vital Sign Reading Time Taken Comments Blood Pressure 149/84 04/08/2024 11:38 AM SAND MOLDER Pulse 65 04/08/2024 11:38 AM SAND MOLDER Temperature 36.9 C (98.5 F) 04/08/2024 11:38 AM SAND MOLDER Respiratory Rate 16 04/18/2023 6:33 AM SAND MOLDER Oxygen Saturation 97% 04/08/2024 11:38 AM SAND MOLDER Inhaled Oxygen Concentration - - Weight 109.3 kg (241 lb) 04/08/2024 11:38 AM SAND MOLDER Height 188 cm (6' 2 ) 04/08/2024 11:38 AM SAND MOLDER Body Mass Index 30.94 04/08/2024 11:38 AM SAND MOLDER Plan of Treatment Not on file Procedures Procedure Name Priority Date/Time Associated Diagnosis Comments EGFR Routine 04/08/2024 12:59 PM SAND MOLDER Alcoholic cirrhosis of liver without ascites (HCC) COLONOSCOPY 04/10/2023 11:10 AM SAND MOLDER HEPATITIS C ANTIBODY Routine 02/20/2023 11:31 AM SAND MOLDER Alcoholic cirrhosis of liver without ascites (HCC) from Last 3 Months or Most Recently Relevant to Health Maintenance Results * eGFR (04/08/2024 12:59 PM SAND MOLDER) eGFR >90 >=60 mL/min/1. 73 m2 Comment: Interpretive Data Reference Interval Normal >/= 90 mL/min/1.73m2 Mildly decreased* 60 - 89 mL/min/1.73m2 Mildly to moderately decreased 45 - 59 mL/min/1.73m2 Moderately to severely decreased 30 - 44 mL/min/1.73m2 Severely decreased 15 - 29 mL/min/1.73m2 Kidney Failure < 15 mL/min/1.73m2 *Relative to young adult level Estimated glomerular filtration rate is determined by the 2020 CKD-EPI equation recommended by the National Kidney Foundation (A Unifying Approach to GFR Estimation: Recommendations of the NKF-ASK Task Force on Reassessing the Inclusion of Race in Diagnosing Kidney Disease, JASN 202). The CKD-EPI equation should not be used for patients with unstable renal function and has not been validated in children and those over 70. Current interpretive data was last reviewed 2021. Blood 04/08/2024 12:5 9 PM SAND MOLDER 04/08/2024 1:17 PM SAND MOLDER us Vicky Goel MD LAB BLOOD ORDERABLES Fi nal Result [facility] Department [place] [address] * COLONOSCOPY (04/10/2023 11:10 AM SAND MOLDER) Anatomical Region Laterality Modality Other Narrative Procedure Note Trey Núñez MD - 04/10/2023 11:10 AM CST [facility] Patient Name: Loi Griffiths Procedure Date: 04/10/2023 11:10 AM Date of : 1955 Admit Type: Outpatient Age: 67 Gender: Male Attending MD: Trey Núñez M.D. Room: [facility] ENDOSCOPY ROOM 8 Note Status: Finalized Procedure: Colonoscopy Indications: Surveillance: Personal history of colonic polyps (unknown histology) on last colonoscopy more than 3 years ago Referring MD: Vicky Goel M.D. Providers: Trey Núñez M.D. Medicines: Monitored Anesthesia Care Complications: No immediate complications. Estimated Blood Loss: Estimated blood loss: none. Procedure: Pre-Anesthesia Assessment: - Immediately prior to administration ofmedications, the patient was re-assessed for adequacy to receive sedatives. - The risks and benefits of the procedure and the sedation options and risks were discussed with the patient. All questions were answered and informed consent was obtained. The benefits, risks and alternatives of theprocedure and sedation were discussed and informed consentwas obtained. All questions were answered. Please referto the signed informed consent document in the medical record. The scope was passed under direct vision.The [id number] endoscope was introduced through the anus and advanced to the terminal ileum, with identification of the appendiceal orifice and IC valve. The colonoscopy was performed without difficulty. The patient tolerated the procedurewell. The quality of the bowel preparation was evaluated using the BBPS ([place] Bowel Preparation Scale)with scores of: Right Colon = 2 (minor amount ofresidual staining, small fragments of stool and/or opaque liquid, but mucosa seen well), Transverse Colon = 3 (entire mucosa seen well with no residual staining, small fragments of stool or opaque liquid) and Left Colon = 2 (minor amount of residual staining, small fragments of stool and/or opaque liquid, but mucosa seen well). The total BBPS score equals 7. Thequality of the bowel preparation was good. The bowel preparation used was NuLytely via split dose instruction. The quality of the bowel preparationwas good. Findings: The terminal ileum, appendiceal orifice and ileo-cecal valve appeared normal. A 2 mm polyp was found in the transverse colon. The polyp wassessile. The polyp was removed with a jumbo cold forceps. Resection andretrieval were complete. Many small and large-mouthed diverticula were found in the sigmoidcolon. Two sessile polyps were found in the rectum. The polyps were 1 mm in size. These polyps were removed with a jumbo cold forceps. Resectionand retrieval were complete. Small, non-bleeding rectal varices were found. Internal hemorrhoids were found during retroflexion. Impression: - One 2 mm polyp in the transverse colon, removedwith a jumbo cold forceps. Resected and retrieved. - Diverticulosis in the sigmoid colon. - Two 1 mm polyps in the rectum, removed with ajumbo cold forceps. Resected and retrieved. - Rectal varices. - Internal hemorrhoids. Recommendation: - Await pathology results. - Return to GI clinic as previously scheduled. Electronically signed by Trey Núñez MD Trey Núñez M.D. 04/10/2023 11:41:00 AM . Number of Addenda: 0 Note Initiated On: 04/10/2023 11:10 AM Recognized by the [place] [employer] for promoting quality in endoscopy Trey Núñez MD ENDOSCOPY PROCEDURES Fin al Result * Hepatitis C antibody Blood (02/20/2023 11:31 AM SAND MOLDER) Hep C Ab Nonreactive Nonreactive [facility] Comment:Antibodies to HCV no t detected. Does NOT exclude the possibility of recent exposure to HCV. Current interpretive data was last revised on 21 Blood 02/20/2023 11:3 1 AM SAND MOLDER 02/20/2023 12:00 PM SAND MOLDER Vicky Goel MD LAB MICROBIOLOGY - GENE RAL ORDERABLES Final Result [facility] [place] [address] from Last 3 Months or Most Recently Relevant to Health Maintenance Insurance MEDICARE [facility] MEDICARE [facility] Advance Directives For more information, please contact: [phone] * Full Code (Latest Code Status on File) Date Activated Date Inactivated Comments 04/10/2023 10:55 AM 04/10/2023 4:26 PM Care Teams Ink Maker Relationship Specialty Start Date End Date Shyanne Paz NP [address] [place], [place] [address] [address] PCP - General Family Medicine 08/22/23
--- OUTSIDE RECORDS SUMMARY | 2024-07-16 15:48 | XMS_ITS | Clinical Summary ---
Author Organization [facility] Address [address] [place] [phone] Care Team Providers Care Social Services Coordinator Name Role Phone Shyanne Paz NP Primary Care Provider [phone] Allergies No known active allergies Medications metFORMIN [...] 12/02/2021 Chronic pain of left knee 02/06/2019 Encounters Date Type Department Care Team Description 07/16/2024 Results Follow-Up [facility] Gastroenterology [address] [facility] 12th [place] [address] [place] [address] Lennie Mathews Alcoholic cirrhosis of liver without ascites (HCC) (Primary Dx); Liver lesion from Last 3 Months Surgical History Surgery Date Site/Laterality Comments COLONOSCOPY 10/23/2020 TOTAL KNEE ARTHROPLASTY 05/08/2018 Bilateral ORIF FIBULA FRACTURE 05/24/2021 Left ESOPHAGOGASTRODUODENOSCOPY 04/10/2023 and colonoscopy KNEE SURGERY Medical History Medical History Date Comments HTN (hypertension) HLD (hyperlipidemia) DM (diabetes mellitus) (HCC) Cirrhosis (HCC) Type 2 diabetes mellitus (HCC) Kidney stone Family History Medical History Relation Name Comments Lung cancer Mother Anesthesia problems Neg Hx Relation Name Status Comments Mother Social History Tobacco Use Types Packs/Day [...] on file Legal Sex Male 10:15 PM DRY JANITOR Gender Identity Not on file Sexual Orientation Not on file Obstetrics History Last Filed Vital Signs Vital Sign Reading Time Taken Comments Blood Pressure 149/84 04/08/2024 11:38 AM DRY JANITOR Pulse 65 04/08/2024 11:38 AM DRY JANITOR Temperature 36.9 C (98.5 F) 04/08/2024 11:38 AM DRY JANITOR Respiratory Rate 16 04/18/2023 6:33 AM DRY JANITOR Oxygen Saturation 97% 04/08/2024 11:38 AM DRY JANITOR Inhaled Oxygen Concentration - - Weight 109.3 kg (241 lb) 04/08/2024 11:38 AM DRY JANITOR Height 188 cm (6' 2 ) 04/08/2024 11:38 AM DRY JANITOR Body Mass Index 30.94 04/08/2024 11:38 AM DRY JANITOR Plan of Treatment Health Maintenance Due Date Last Done Comments Albumin Creatinine Ratio, Urine 1955 Depression Screening 1955 Hemoglobin A1C 1955 Prostate Cancer Screening-PSA 1955 Dilated Eye Exam 1955 Foot Exam 1955 Lipid Panel 1955 DTaP/Tdap/Td Vaccine (1 - Tdap) 1966 Pneumococcal vaccine 65+ (1 of 2 - PCV) 1974 Zoster Vaccine (1 of 2) 2005 Well Visit 65+ 2020 Covid-19 Vaccine (2 - season) 11/05/202301/2022 Fall Risk Assessment 04/18/2024 04/18/2023 Influenza Vaccine (Season Ended) 2024 eGFR 04/08/2025 04/08/2024, 08/05, 02/20/2023 Colon Cancer Screening-Colonoscopy 04/10/20332023 Hepatitis B Screening Completed 02/20/2023 Hepatitis C Screening Completed 02/20/2023 Abdominal Aortic Aneurysm (A AA) Screen Completed 03/24/2023, 09/14/2022 Procedures Procedure Name Priority Date/Time Associated Diagnosis Comments EGFR Routine 04/08/2024 12:59 PM DRY JANITOR Alcoholic cirrhosis of liver without ascites (HCC) COLONOSCOPY 04/10/2023 11:10 AM DRY JANITOR HEPATITIS C ANTIBODY Routine 02/20/2023 11:31 AM DRY JANITOR Alcoholic cirrhosis of liver without ascites (HCC) from Last 3 Months or Most Recently Relevant to Health Maintenance Results * eGFR (04/08/2024 12:59 PM DRY JANITOR) eGFR >90 >=60 mL/min/1. 73 m2 Comment: [...] of Race in Diagnosing Kidney Disease, JASN 2020). The CKD-EPI equation should not be used for patients with unstable renal function and has not been validated in children and those over 70. Current interpretive data was last reviewed 2021. Blood 04/08/2024 12:5 9 PM DRY JANITOR 04/08/2024 1:17 PM DRY JANITOR Vicky Goel MD LAB BLOOD ORDERABLES Fi nal Result [facility] Department of Laboratories [place], [place] [id number] * COLONOSCOPY (04/10/2023 11:10 AM DRY JANITOR) Anatomical Region Laterality Modality Other Narrative Procedure Note Trey Núñez MD - 04/10/2023 11:10 AM CST GI ENDOSCOPY [facility] Patient Name: Loi Griffiths Procedure Date: 04/10/2023 11:10 AM Date of : 1955 Admit Type: Outpatient Age: 67 Gender: Male Attending MD: Trey Núñez M.D. Room: [facility] ENDOSCOPY ROOM 8 Note Status: Finalized [...] The scope was passed under direct vision.The [id number] endoscope was introduced through the anus and advanced to the terminal ileum, with identification of the appendiceal orifice and IC valve. The colonoscopy was performed without difficulty. The patient tolerated the procedurewell. The quality of the bowel preparation was evaluated using the BBPS ([place] Bowel Preparation Scale)with scores of: Right Colon [...] On: 04/10/2023 11:10 AM Recognized by the [employer] G[employer]intestinal Endoscopy for promoting quality in endoscopy us Trey Núñez MD ENDOSCOPY PROCEDURES Fin al Result * Hepatitis C antibody Blood (02/20/2023 11:31 AM DRY JANITOR) Hep C Ab Nonreactive Nonreactive [place] [facility] Comment:Antibodies to HCV no t detected. Does NOT exclude the possibility of recent exposure to HCV. Current interpretive data was last revised on 21 Blood 02/20/2023 11:3 1 AM DRY JANITOR 02/20/2023 12:00 PM DRY JANITOR us Vicky Goel MD LAB MICROBIOLOGY - GENE RAL ORDERABLES Final Result [facility] Department [place] [address] from Last 3 Months or Most Recently Relevant to Health Maintenance Insurance MEDICARE [facility] MEDICARE BLUE [facility] Advance Directives For more information, please contact: [phone] * Full Code (Latest Code Status on File) Date Activated Date Inactivated Comments 04/10/2023 10:55 AM 04/10/2023 4:26 PM Care Teams Social Services Coordinator Relationship Specialty Start Date End Date Shyanne Paz NP [address] [place] [address] PCP - General Family Medicine 08/22/23
--- OUTSIDE RECORDS SUMMARY | 2024-07-16 15:48 | XMS_ITS | Encounter Summary ---
Author Organization [facility] Address [address] [place] [address] Phone Care Team Providers Care Can Dragger Name Role Phone Shyanne Paz NP Primary Care Provider [phone] Reason for Referral * MRI/CAT/PET Scan (Routine) - Pending Review Specialty Diagnoses / Procedures Referred By Marie coy Referred To Contact Radiology Diagnoses Liver lesion Alcoholic cirrhosis of liver without ascites (HCC) Procedures MRI Abdomen Liver W WO Contrast Vicky Goel MD [address] [place] [address] Phone: tel: fax: [address] [address] Referral ID Status Reason Start Date Expiration Date V isits Requested Visits Authorized [id number] Pending Review 07/16/2024 08/15/2025 1 1 Encounter Details Date Type Department Care Team (Late st Contact Info) Description 07/16/2024 Results Follow-Up 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 Left VM with pt's number for call back. ----- Message from Nurse Noemi Conklin sent at 04/10/2024 9:43 AM MANUFACTURING CLERK ----- Regarding: MRI Please coordinate repeat MRI with ROV on 10/14/24. (Pt would need scheduled after ROV appt due to drive). Dx: LR3 lesion, cirrhosis ----- Message ----- From: Vicky Goel MD Sent: 04/09/2024 2:50 PM MANUFACTURING CLERK To: Noemi Miranda RN Thank you! Predominantly indirect which is reassuring ----- Message ----- From: Noemi Miranda RN Sent: 04/09/2024 2:39 PM MANUFACTURING CLERK To: Vicky Goel MD Direct Bili was added and final. ----- Message ----- From: Vicky Goel MD Sent: 04/09/2024 12:02 PM MANUFACTURING CLERK To: Noemi Miranda RN Labs and MRI reviewed. 9 mm LR3 lesion, patent vasculature, no ascites Hgb 8.3 with improvement in iron studies Bilirubin has increased and recent upper GI bleeding which signifies the liver has gotten a bit sicker. - Can you see if direct bilirubin can be added on? - Recommend repeat CMP, direct bili, and INR in 1-2 months to monitor - Repeat MRI liver at time of ROV in 6 months. Looks like this still needs to be scheduled Can you let him know? MELD 3.0: 16 at 04/08/2024 12:59 PM MELD-Na: 16 at 04/08/2024 12:59 PM Calculated from: Serum Creatinine: 0.69 mg/dL (Using min of 1 mg/dL) at 04/08/2024 12:59 PM Serum Sodium: 141 mmol/L (Using max of 137 mmol/L) at 04/08/2024 12:59 PM Total Bilirubin: 3.1 mg/dL at 04/08/2024 12:59 PM Serum Albumin: 3.6 g/dL (Using max of 3.5 g/dL) at 04/08/2024 12:59 PM INR(ratio): 1.63 at 04/08/2024 12:59 PM Age at listing (hypothetical): 68 years Sex: Male at 04/08/2024 12:59 PM documented in this encounter Plan of Treatment Scheduled Orders Name Type Priority Associated Diagnoses Orde r Schedule MRI Abdomen Liver W WO Contrast Imaging Schedule Routine, Read Routine (OP Routine) Liver lesion Alcoholic cirrhosis of liver without ascites (HCC) Expected: 07/16/2024, Expires: 07/16/2025 documented as of this encounter Visit Diagnoses Diagnosis Alcoholic cirrhosis of liver without ascites (HCC)- Primary Liver lesion Other specified disorders of liver documented in this encounter Care Teams Can Dragger Relationship Specialty Start Date End Date Shyanne Paz NP [address] [place] [address] PCP - General Family Medicine 08/22/23 documented as of this encounter
== END 2024-07-16 15:46 | disposition home or self-care (01) ==
LOC: ANHIMG 15:46
PROVIDERS: Visit Provider Orthopaedic Surgery
DX: T84.012A Broken internal right knee prosthesis, initial encounter (principal); Z96.651 Presence of right artificial knee joint; M11.261 Other chondrocalcinosis, right knee; M17.11 Unilateral primary osteoarthritis, right knee; Y83.1 Surgical operation with implant of artificial internal device as the cause of abnormal reaction of the patient, or of later complication, without mention of misadventure at the time of the procedure
CPT/HCPCS: 73700

== ENCOUNTER 2024-07-18 12:40 | Outpatient (NON) | payer MEDICARE, BC, SELFPAY ==
--- OUTSIDE RECORDS SUMMARY | 2024-07-18 12:49 | XMS_ITS | Encounter Summary ---
Author Organization [facility] Address [facility] [place] [address] Care Team Providers Care Draw Operator Name Role Phone Mathieu Johnson MD Primary Care Provider [phone] Loi Briscoe MD Primary Care Provider [phone] Shyanne Paz Primary Care Provider [phone] Encounter Details Date Type Department Care Team (Late st Contact Info) Description 08/11/2018 Abstract [facility] CONVERSION [address] [address] , Generic Conversion, Social History Tobacco Use Types Packs/Day Years Used Date Smoking Tobacco: Never Smokeless Tobacco: Current Chew Alcohol Use Standard Drinks/Week Comments Yes 0 (1 standard drink = 0.6 oz pur e alcohol) 4-5 beers a day Sex and Gender Information Value Date Recorded Sex Assigned at Male 04/22/2024 11:40 AM POOL TABLE MECHANIC Legal Sex Male 9:50 PM POOL TABLE MECHANIC Gender Identity Not on file Sexual Orientation Not on file documented as of this encounter Functional Status * RETIRED Are you deaf or do you have serious difficulty hearing Answer Date of Assessment Author Status 05/08/2018 8:13 AM POOL TABLE MECHANIC Activ e documented as of this encounter Plan of Treatment Upcoming Encounters Date Type Department Care Team (Late st Contact Info) Description 10/09/2024 9:[address] [facility] [address] [place] [address] Seamus Perkins MD [address], [place] [address] 01/08/2025 1:45 PM POOL TABLE MECHANIC Appointment [facility] [address] [place] [address] Seamus Perkins MD [address], [place] [address] 01/08/2025 2:00 PM POOL TABLE MECHANIC Office Visit [facility] [address] [place] [address] Seamus Perkins MD [address] [place] [address] documented as of this encounter Visit Diagnoses Not on filedocumented in this encounter Additional Health Concerns Infection Onset Date Last Indicated Resolved Time COVID-19 Rule Out 10/20/2020 10/20/2020 10/20/2020 7:27 PM CDT COVID-19 Rule Out 05/21/2021 05/21/2021 05/21/2021 1:21 PM CDT documented as of this encounter Care Teams Draw Operator Relationship Specialty Start Date End Date Mathieu Johnson MD [address] [place] [id number] PCP - General FAMILY PRACTICE 05/07/18 10/19/20 Loi Briscoe MD [address] [place] [address] PCP - General FAMILY PRACTICE 10/20/20 02/23/23 Shyanne Paz APNP [address] [place] [address] PCP - General NURSE PRACTITIONER 02/24/23 documented as of this encounter
--- OUTSIDE RECORDS SUMMARY | 2024-07-18 12:49 | XMS_ITS | Clinical Summary ---
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 Gender Identity Not on file Sexual Orientation Not on file Obstetrics History Last Filed Vital Signs Vital Sign Reading Time Taken Comments Blood Pressure 149/84 04/08/2024 11:38 AM CEO AND CO FOUNDER Pulse 65 04/08/2024 11:38 AM CEO AND CO FOUNDER Temperature 36.9 C (98.5 F) 04/08/2024 11:38 AM CEO AND CO FOUNDER Respiratory Rate 16 04/18/2023 6:33 AM CEO AND CO FOUNDER Oxygen Saturation 97% 04/08/2024 11:38 AM CEO AND CO FOUNDER Inhaled Oxygen Concentration - - Weight 109.3 kg (241 lb) 04/08/2024 11:38 AM CEO AND CO FOUNDER Height 188 cm (6' 2 ) 04/08/2024 11:38 AM CEO AND CO FOUNDER Body Mass Index 30.94 04/08/2024 11:38 AM CEO AND CO FOUNDER Plan of Treatment Health Maintenance Due Date [...] Diagnosis Comments EGFR Routine 04/08/2024 12:59 PM CEO AND CO FOUNDER Alcoholic cirrhosis of liver without ascites (HCC) COLONOSCOPY 04/10/2023 11:10 AM CEO AND CO FOUNDER HEPATITIS C ANTIBODY Routine 02/20/2023 11:31 AM CEO AND CO FOUNDER Alcoholic cirrhosis of liver without ascites (HCC) from Last 3 Months or Most Recently Relevant to Health Maintenance Results * eGFR (04/08/2024 12:59 PM CEO AND CO FOUNDER) eGFR >90 >=60 mL/min/1. 73 m2 Comment: [...] reviewed 2021. Blood 04/08/2024 12:5 9 PM CEO AND CO FOUNDER 04/08/2024 1:17 PM CEO AND CO FOUNDER Vicky Goel MD LAB BLOOD ORDERABLES Fi nal Result [facility] Department of Laboratories [place], [place] [id number] * COLONOSCOPY (04/10/2023 11:10 AM CEO AND CO FOUNDER) Anatomical Region Laterality Modality Other Narrative Procedure Note Trey Núñez MD - 04/10/2023 11:10 AM CST GI ENDOSCOPY [facility] Patient Name: Loi Griffiths Procedure Date: 04/10/2023 11:10 AM Date of : 1955 Admit Type: Outpatient Age: 67 Gender: Male Attending MD: Trey Núñez M.D. Room: [facility] ENDOSCOPY ROOM 8 Note Status: [...] The scope was passed under direct vision.The [id number] endoscope was introduced through the anus and advanced to the terminal ileum, with identification of the appendiceal orifice and IC valve. The colonoscopy was performed without difficulty. The patient tolerated the procedurewell. The quality of the bowel preparation was evaluated using the BBPS ([place] Bowel Preparation Scale)with scores of: Right Colon [...] On: 04/10/2023 11:10 AM Recognized by the [place] [employer] for Gastrointestinal Endoscopy for promoting quality in endoscopy us Trey Núñez MD ENDOSCOPY PROCEDURES Fin al Result * Hepatitis C antibody Blood (02/20/2023 11:31 AM CEO AND CO FOUNDER) Hep C Ab Nonreactive Nonreactive [place] [facility] Comment:Antibodies to HCV no t detected. Does NOT exclude the possibility of recent exposure to HCV. Current interpretive data was last revised on 21 Blood 02/20/2023 11:3 1 AM CEO AND CO FOUNDER 02/20/2023 12:00 PM CEO AND CO FOUNDER us Vicky Goel MD LAB MICROBIOLOGY - GENE RAL ORDERABLES Final Result [facility] [place] [address] from Last 3 Months or Most Recently Relevant to Health Maintenance Insurance MEDICARE [facility] MEDICARE BLUE [facility] Advance Directives For more information, please contact: [phone] * Full Code (Latest Code Status on File) Date Activated Date Inactivated Comments 04/10/2023 10:55 AM 04/10/2023 4:26 PM Care Teams Vendor Analyst Relationship Specialty Start Date End Date Shyanne Paz NP [address] [place] [address] PCP - General Family Medicine 08/22/23
--- OUTSIDE RECORDS SUMMARY | 2024-07-18 12:49 | XMS_ITS | Clinical Summary ---
Author Organization [facility] Address [address] [place] [address] Phone Care Team Providers Care Teaching Supervisor Name Role Phone Unavailable Primary Care Provider [...] on file Legal Sex Male 2:03 PM COMPENSATION BUSINESS PARTNER Gender Identity Not on file Sexual Orientation Not on file Last Filed Vital Signs Vital Sign Reading Time Taken Comments Blood Pressure - - Pulse - - Temperature - - Respiratory Rate - - Oxygen Saturation - - Inhaled Oxygen Concentration - - Weight 108.9 kg (240 lb) 02/05/2019 3:25 PM COMPENSATION BUSINESS PARTNER Height 188 cm (6' 2 ) 02/05/2019 3:25 PM COMPENSATION BUSINESS PARTNER Body Mass Index 30.81 02/05/2019 3:25 PM COMPENSATION BUSINESS PARTNER Plan of Treatment Health Maintenance Due Date [...] Phone Billing Address Personal/Family Self [address] BLUE ACCESS/TRUE BLUE PPO MEDICARE PART A AND B
--- OUTSIDE RECORDS SUMMARY | 2024-07-18 12:49 | XMS_ITS | Referral Summary ---
Author Organization [facility] Address [address] [place] [address] Care Team Providers Care Edger Liner Name Role Phone Shyanne Paz NP Primary Care Provider [phone] Encounters Date Type Department Care Team Description 07/16/2024 Results Follow-Up [facility] Gastroenterology [address] [facility] 12th [place] [address] [place] [address] Lennie Mathews Alcoholic cirrhosis of [...] on file Legal Sex Male 10:15 PM SENIOR ETL DEVELOPER Gender Identity Not on file Sexual Orientation Not on file Last Filed Vital Signs Vital Sign Reading Time Taken Comments Blood Pressure 149/84 04/08/2024 11:38 AM SENIOR ETL DEVELOPER Pulse 65 04/08/2024 11:38 AM SENIOR ETL DEVELOPER Temperature 36.9 C (98.5 F) 04/08/2024 11:38 AM SENIOR ETL DEVELOPER Respiratory Rate 16 04/18/2023 6:33 AM SENIOR ETL DEVELOPER Oxygen Saturation 97% 04/08/2024 11:38 AM SENIOR ETL DEVELOPER Inhaled Oxygen Concentration - - Weight 109.3 kg (241 lb) 04/08/2024 11:38 AM SENIOR ETL DEVELOPER Height 188 cm (6' 2 ) 04/08/2024 11:38 AM SENIOR ETL DEVELOPER Body Mass Index 30.94 04/08/2024 11:38 AM SENIOR ETL DEVELOPER Plan of Treatment Not on file Procedures Procedure Name Priority Date/Time Associated Diagnosis Comments EGFR Routine 04/08/2024 12:59 PM SENIOR ETL DEVELOPER Alcoholic cirrhosis of liver without ascites (HCC) COLONOSCOPY 04/10/2023 11:10 AM SENIOR ETL DEVELOPER HEPATITIS C ANTIBODY Routine 02/20/2023 11:31 AM SENIOR ETL DEVELOPER Alcoholic cirrhosis of liver without ascites (HCC) from Last 3 Months or Most Recently Relevant to Health Maintenance Results * eGFR (04/08/2024 12:59 PM SENIOR ETL DEVELOPER) eGFR >90 >=60 mL/min/1. 73 m2 Comment: [...] reviewed 2021. Blood 04/08/2024 12:5 9 PM SENIOR ETL DEVELOPER 04/08/2024 1:17 PM SENIOR ETL DEVELOPER us Vicky Goel MD LAB BLOOD ORDERABLES Fi nal Result [facility] [place] [address] * COLONOSCOPY (04/10/2023 11:10 AM SENIOR ETL DEVELOPER) Anatomical Region Laterality Modality Other Narrative Procedure Note Trey Núñez MD - 04/10/2023 11:10 AM CST GI ENDOSCOPY [facility] Patient Name: Loi Griffiths Procedure Date: 04/10/2023 11:10 AM Date of : 1955 Admit Type: Outpatient Age: 67 Gender: Male Attending MD: Trey Núñez M.D. Room: [facility] ENDOSCOPY ROOM 8 Note Status: [...] The scope was passed under direct vision.The [id number] endoscope was introduced through the anus and advanced to the terminal ileum, with identification of the appendiceal orifice and IC valve. The colonoscopy was performed without difficulty. The patient tolerated the procedurewell. The quality of the bowel preparation was evaluated using the BBPS ([place] Bowel Preparation Scale)with scores of: Right Colon [...] On: 04/10/2023 11:10 AM Recognized by the [employer] Society [employer] Gastrointestinal Endoscopy for promoting quality in endoscopy Trey Núñez MD ENDOSCOPY PROCEDURES Fin al Result * Hepatitis C antibody Blood (02/20/2023 11:31 AM SENIOR ETL DEVELOPER) Hep C Ab Nonreactive Nonreactive [place] [facility] Comment:Antibodies to HCV no t detected. Does NOT exclude the possibility of recent exposure to HCV. Current interpretive data was last revised on 21 Blood 02/20/2023 11:3 1 AM SENIOR ETL DEVELOPER 02/20/2023 12:00 PM SENIOR ETL DEVELOPER Vicky Goel MD LAB MICROBIOLOGY - GENE RAL ORDERABLES Final Result [place] [facility] [place] [address] from Last 3 Months or Most Recently Relevant to Health Maintenance Insurance MEDICARE [facility] MEDICARE [facility] Advance Directives For more information, please contact: [phone] * Full Code (Latest Code Status on File) Date Activated Date Inactivated Comments 04/10/2023 10:55 AM 04/10/2023 4:26 PM Care Teams Edger Liner Relationship Specialty Start Date End Date Shyanne Paz NP [address] [place], [place] [address] [place] [address] PCP - General Family Medicine 08/22/23
--- OUTSIDE RECORDS SUMMARY | 2024-07-18 12:50 | XMS_ITS | Clinical Summary ---
Author Organization [facility] Address [address] [place] [address] Care Team Providers Care Local Combination Truck Driver Name Role Phone Shyanne Paz Primary Care [...] anemias 04/06/2022 Other cirrhosis of liver (CMS/HCC [facility]/HCC) 04/06 Aftercare following surgery 06/04/2021 Encounters Date Type Department Care Team Description 07/08/2024 2:30 PM CDT Office Visit [place] [address] [address] Lydia Arana APNP Follow Up (Thrombocytopenia/) ; Lab Results 07/08/2024 1:30 PM CDT - 07/08/2024 11:59 PM CDT Hospital Encounter [place] [place] [address] Lydia Arana APNP Discharge Disposition: Home or Self Care (Routine Discharge) 07/08/2024 Orders Only [facility] [place] [address] [address] Seamus Perkins MD 07/08/2024 Orders Only [facility] [place] [address] Seamus Perkins MD 07/08/2024 Travel 05/13/2024 Orders Only [place] [address] [address] Lydia Arana APNP 05/13/2024 Telephone [facility] [place] [address] [address] Seamus Perkins MD Reschedule 04/22/2024 11:02 AM SURFACING TECHNICIAN - 04/22/2024 3:15 PM SURFACING TECHNICIAN Emergency [place] [facility] [place] [address] Meredith Canales, DO Hypotension Discharge Disposition: Home or [...] from your doctor or pharmacy? Never 03/16/2024 [facility] Utilities Answer Date Recorded In the past 12 months has e [employer], gas, oil, or water [employer] threatened to shut off services in your [...] often do you attend chur ch or zoroastrian services? Never 03/16/2024 Do you belong to any clubs o r organizations such as jainism groups, unions, fraternal or athletic groups, or [...] and heating? Not hard at all 03/16/2024 [facility] [place] [facility] Occupat ional Health - Occupational Stress [...] any time in the past 12 m [facility], were you homeless or living in a correction (including now)? No 03/16/2024 Sex and Gender Information Value Date Recorded Sex Assigned at Male 04/22/2024 11:40 AM SURFACING TECHNICIAN Legal Sex Male 9:50 PM SURFACING TECHNICIAN Gender Identity Not on file Sexual Orientation [...] Info) Description 10/09/2024 9:00 AM CDT Appointment [facility] [place] [address] Seamus Perkins MD [address], [place] [address] 01/08/2025 1:45 PM SURFACING TECHNICIAN Appointment [facility] [place] [address] Seamus Perkins MD [address], [place] [id number] 01/08/2025 2:00 PM SURFACING TECHNICIAN Office Visit [facility] [place] [address] Seamus Perkins MD [address], [place] [address] Health Maintenance Due Date Last Done Comments [...] this topic Medical Devices Implanted Type Area Master Motorcycle Technician Device Identifier Shelf Expiration Date Model / Serial / Lot Knee Components Knee Components Plate [id number] Titanium 5 Hole Lock Low Profile Variax Bone 16x1.3mm Fibula Lateral Nonsterile - [id number] Implanted:Qty: 1 on 05/24/2021 by Grant Powell MD at [facility] Plate Left: Ankle [employer] Z[employer] [id number] / / Screw Locking Hobbs T10 3.5 X 16mm - [id number] Implanted:Qty: 4 on 05/24/2021 by Grant Powell MD at [facility] Screw Left: Ankle [employer] ZARI [id number] / / Screw Locking Hobbs T10 3.5 X 18mm - [id number] Implanted:Qty: 1 on 05/24/2021 by Grant Powell MD at [facility] Screw Left: Ankle [employer] ZAR[employer] [id number] / / Screw Bone 3.5mm 16mm Variax Titanium T10 Full Thread Foot Ankle Self Tap Nonsterile Yellow Lock Plate System - [id number] Implanted:Qty: 3 on 05/24/2021 by Grant Powell MD at [facility] Screw Left: Ankle [employer] ZARI [id number] / / Cement Bone 20/10 Fast Set Depuy - [id number] Implanted:Qty: 1 on 05/08/2018 by Buddy Flynn MD at [facility] Left: Knee [employer] - A MARY ELLEN [employer] MARY ELLEN 09/02/2020 [id number] / / [id number] Screw Headless Mis Denise 48mm - [id number] Implanted:Qty: 1 on 05/08/2018 by Buddy Flynn MD at [facility] Left: Knee [employer] 11/04/2027 [id number] / / [id number] Screw Headed Denise 48mm - [id number] Implanted:Qty: 1 on 05/08/2018 by Buddy Flynn MD at [facility] Left: Knee [employer] 12/04/2027 [id number] / / [id number] Persona Partianl Knee System Vivacit-E Highly Crosslinked Polyethylene Partial Articular Surface Left Medial Implanted:Qty: 1 on 05/08/2018 by Buddy Flynn MD at [facility] Left: Knee 02/02/2023 [id number] / / [id number] Persona Partial Knee System Partial Tibial Cemented Size G Left Medial Implanted:Qty: 1 on 05/08/2018 by Buddy Flynn MD at [facility] Left: Knee [employer] 07/04/2027 [id number] / / [id number] Persona Partial Knee System Partial Femur Cemented Size 6 Left Medial Implanted:Qty: 1 on 05/08/2018 by Buddy Flynn MD at [facility] Left: Knee [employer] 08/04/2027 [id number] / / [id number] Explanted Type Area Master Motorcycle Technician Device Identifier Shelf Expiration Date Model / Serial / Lot Persona Partial Knee System Articular Surface Geophysics Professor Tip Explanted:Qty: 1 on 05/08/2018 by Buddy Flynn MD at [facility] Left: Knee [employer] 09/02/2022 [id number] / / [id number] Drill Bit Ao Dai 2.6 Mm X 135 Mm Scaled Explanted:Qty: 1 on 05/24/2021 at [facility] Left: Ankle [id number] / / Procedures Procedure Name Priority Date/Time Associated Diagnosis Comments FERRITIN Routine 07/08/2024 1:56 PM CDT Thrombocytopenia IRON SAT PANEL (IRON,IBC,%SAT) Routine 07/08/2024 1:56 PM CDT Thrombocytopenia COMPREHENSIVE METABOLIC PANEL Routine 07/08/2024 1:56 PM CDT Thrombocytopenia CBC W/DIFF AUTOMATED Routine 07/08/2024 1:56 PM CDT Thrombocytopenia CTA CHEST PE PROTOCOL STAT 04/22/2024 1:09 PM SURFACING TECHNICIAN XR CHEST PORTABLE STAT 04/22/2024 11: 37 AM SURFACING TECHNICIAN TYPE & SCREEN STAT 04/22/2024 11:37 AM SURFACING TECHNICIAN PRO-BRAIN NATRIURETIC PEPTIDE STAT 04/22/2024 11:37 AM SURFACING TECHNICIAN MAGNESIUM STAT 04/22/2024 11:37 AM SURFACING TECHNICIAN LACTIC ACID W REFLEX (SEPSIS) STAT 04/22/2024 11:37 AM SURFACING TECHNICIAN TROPONIN, QUANT STAT 04/22/2024 11:37 AM SURFACING TECHNICIAN HEPATIC FUNCTION PANEL STAT 11:37 AM SURFACING TECHNICIAN BASIC METABOLIC PANEL STAT 04/22/2024 11:37 AM SURFACING TECHNICIAN D-DIMER, QUANTITATIVE STAT 04/22/2024 11:37 AM SURFACING TECHNICIAN CBC W/DIFF AUTOMATED STAT 04/22/2024 11:37 AM SURFACING TECHNICIAN ECG 12-LEAD Routine 04/22/2024 11:10 AM SURFACING TECHNICIAN COLONOSCOPY 10/23/2020 7:48 AM CDT from Last 3 Months or Most Recently Relevant to Health Maintenance Results * IRON SAT PANEL (IRON,IBC,%SAT) (07/08/2024 1:56 PM CDT) IRON 131 65 - 175 MCG/DL 07/08/2024 3:04 PM CDT [facility] IRON BINDING CAPACITY 378 250 - 450 MCG/DL 07/08/2024 3:04 PM CDT [facility] IRON SATURATION 35 % 3:04 PM CDT [facility] Comment:REFERENCE RANGE NOT ESTABLISHED 07/08/2024 1:56 PM CDT us Lydia [facility] Final Res ult [facility] [address] [place] [id number], * (ABNORMAL) COMPREHENSIVE METABOLIC PANEL (07/08/2024 1:56 PM CDT) SODIUM S/P/B 138 136 - 145 MMOL/L 07/08/2024 2:29 PM CDT [facility] POTASSIUM S/P/B 4.1 3.5 - 5.1 MMOL/L 07/08/2024 2:29 PM CDT [facility] CHLORIDE S/P/B 106 98 - 107 MMOL/L 07/08/2024 2:29 PM CDT [facility] CO2 26.9 21.0 - 32.0 MMOL/L 07/08/2024 2:29 PM CDT [facility] GLUCOSE 252(H) 70 - 99 MG/DL 07/08/2024 2:29 PM CDT [facility] Comment: FASTING GLUCOSE 100 TO 125 MG/DL IS CONSISTENT WITH IMPAIRED FASTING GLUCOSE. FASTING GLUCOSE >125 MG/DL IS CONSISTENT WITH DIABETES. RANDOM GLUCOSE >200 MG/DL WITH HYPERGLYCEMIC SYMPTOMS IS CONSISTENT WITH DIABETES. PER ADA GUIDELINES BUN 13 6 - 24 MG/DL 07/08/2024 2:29 PM CDT [facility] CREATININE S/P/B 0.74 0.70 - 1.30 MG/DL 07/08/2024 2:29 PM CDT [facility] CALCIUM S/P/B 9.0 8.4 - 10.5 MG/DL 07/08/2024 2:29 PM [facility] BILIRUBIN TOTAL S/P/B 2.3(H) 0.2 - 1.0 MG/DL 07/08/2024 2:29 PM [facility] Comment: THIS ASSAY IS NOT RECOMMENDED FOR PATIENTS UNDERGOING TREATMENT WITH ELTROMBOPAG DUE TO THE POTENTIAL FOR FALSELY ELEVATED RESULTS. ALKALINE PHOSPHATASE S/P/B 137(H) 45 - 115 U/L 07/08/2024 2:29 PM [facility] AST 36 15 - 37 U/L 07/08/2024 2:29 PM [facility] ALT 35 16 - 63 U/L 07/08/2024 2:29 PM [facility] TOTAL PROTEIN S/P/B 6.9 6.4 - 8.2 G/DL 07/08/2024 2:29 PM [facility] ALBUMIN S/P/B 3.1(L) 3.4 - 5.0 G/DL 07/08/2024 2:29 PM [facility] ANION GAP 5.1 5.0 - 15.0 MMOL/L 07/08/2024 2:29 PM [facility] OSMOLALITY (CALC) 295 MOSM/KG 025 2:29 PM [facility] Comment:REFERENCE RANGE NOT ESTABLISHED GFR ESTIMATE >90 >89 ML/MIN/1. 73 M2 07/08/2024 2:29 PM [facility] GFR NOTES GFR REFERENCE S: 07/08/2024 2:29 PM [facility] Comment: THE ESTIMATED GFR IS CALCULATED [...] us Lydia GARCIANP LABORATORY Final Res ult [facility] [address] [place] [address], * (ABNORMAL) CBC W/DIFF AUTOMATED (07/08/2024 1:56 PM CDT) Only the most recent of2 resultswithin the time period is included. WBC 3.65(L) 4.00 - 10.80 x10'3/uL 07/08/2024 2:12 PM CDT [facility] RBC 3.79(L) 4.50 - 6.10 x10'6/uL 07/08/2024 2:12 PM CDT [facility] HGB 10.2(L) 13.0 - 18.0 G/DL 07/08/2024 2:12 PM CDT [facility] HCT 30.4(L) 37.0 - 52.0 % 07/08/2024 2:12 PM CDT [facility] MCV 80.2 78.0 - 100.0 FL 07/08/2024 2:12 PM CDT [facility] MCH 26.9(L) 27.0 - 31.0 PG 07/08/2024 2:12 PM CDT [facility] MCHC 33.6 33.0 - 36.0 G/DL 07/08/2024 2:12 PM CDT [facility] RDW 28.4(H) 11.5 - 14.5 % 07/08/2024 2:12 PM CDT [facility] PLT 86(L) 150 - 350 x10'3/uL 07/08/2024 2:12 PM CDT [facility] MPV RESULTS NOT AVAILABLE 7.4 - 10.4 FL 07/08/2024 2:12 PM CDT [facility] CBC COMMENT NORMAL REFERENCE RANGE NOT ESTABLISHED FOR THE PROPORTIONAL LEUKOCYTE DIFFERENTIAL. 07/08/2024 2:12 PM CDT [facility] NEUTROPHILS % 49.8 % 07/08/2024 2:34 PM CDT [facility] LYMPHOCYTES % 25.8 % 07/08/2024 2:34 PM CDT [facility] MONOCYTES % 16.7 % 07/08/2024 2:34 PM CDT [facility] EOSINOPHILS % 6.0 % 07/08/2024 2:34 PM CDT [facility] BASOPHILS % 1.4 % 07/08/2024 2:34 PM CDT [facility] IMMATURE GRANS % 0.3 % 07/09/19 25 2:34 PM CDT [facility] NRBC % 0.0 % 07/08/2024 2:34 PM CDT [facility] ABS. NEUTROPHILS 1.82 1.60 - 8.30 x10'3/uL 07/08/2024 2:34 PM CDT [facility] ABS. LYMPHOCYTES 0.94 0.80 - 4.70 x10'3/uL 07/08/2024 2:34 PM CDT [facility] ABS. MONOCYTES 0.61 0.00 - 1.50 x10'3/uL 07/08/2024 2:34 PM CDT [facility] ABS. EOSINOPHILS 0.22 0.00 - 0.40 x10'3/uL 07/08/2024 2:34 PM CDT [facility] ABS. BASOPHILS 0.05 0.00 - 0.20 x10'3/uL 07/08/2024 2:34 PM CDT [facility] ABS. IMMATURE GRANULOCYTES 0.01 0.00 - 0.03 x10'3/uL 07/08/2024 2:34 PM CDT [facility] ABS. NUCLEATED RBC'S 0.00 0.00 - 0.01 x10'3/uL 07/08/2024 2:34 PM CDT [facility] PLT MORPH. NORMAL 07/08/2024 2:34 PM CDT [facility] RBC MORPHOLOGY 2+ 07/08/2024 2:34 PM CDT [facility] Comment: HYPOCHROMASIA 2+ ANISOCYTOSIS 07/08/2024 1:56 PM CDT Lydia R Waltrip APNP LABORATORY Final Res ult Performing Organization Address City/[facility]/ZIP Co de Phone Number [facility] [address] [place] [phone], * FERRITIN (07/08/2024 1:56 PM CDT) FERRITIN 42.7 26 - 388 NG/ML 07/08/2024 2:29 PM CDT [facility] 07/08/2024 1:56 PM CDT Robinramiroip APNP LABORATORY Final Res ult Performing Organization Address [facility] Co de Phone Number [facility] [address] [place] [phone], * CTA CHEST PE PROTOCOL (04/22/2024 1:09 PM SURFACING TECHNICIAN) Anatomical Region Laterality Modality Chest Computed Tomogra phy 04/22/2024 1:37 PM SURFACING TECHNICIAN Impressions 04/22/2024 1:43 PM SURFACING TECHNICIAN IMPRESSION: 1. No acute intrathoracic process identified. Negative for pulmonary embolism as described. 2. Redemonstrated findings of cirrhosis. Referred By: Interpreted By: Emre Birmingham MD, 04/22/2024 1:37 PM Narrative 04/22/2024 1:43 PM SURFACING TECHNICIAN [address] [place] [address] Examination: CTA chest. Exam time: 1312 hours. [...] Procedure Note Emre Birmingham MD - 04/22/2024 [facility] [address] [place] [address] Examination: CTA chest. Exam time: 1312 hours. [...] Emre Birmingham MD, 04/22/2024 1:37 PM us Meredith Katzger Ally DO CT Final Re sult * XR CHEST PORTABLE (04/22/2024 11:37 AM SURFACING TECHNICIAN) Anatomical Region Laterality Modality Chest Radiographic Carolina ging 04/22/2024 11:3 9 AM SURFACING TECHNICIAN Impressions 04/22/2024 11:40 AM SURFACING TECHNICIAN IMPRESSION: No acute cardiopulmonary process identified. Referred By: Interpreted By: Emre Birmingham MD, 04/22/2024 11:39 AM Narrative 04/22/2024 11:40 AM SURFACING TECHNICIAN [address] [place] [address] Examination: Portable chest. Exam time: 1126 hours. Clinical history: Syncope. Comparison: None Technique: AP upright view. Findings: Allowing for projection and body habitus, the heart size is probably upper normal. Pulmonary vascularity is within normal limits. No acute infiltrates or effusions are identified. The visualized bony thorax is unremarkable for age. Procedure Note Emre Birmingham MD - 04/22/[address] [place] [address] Examination: Portable chest. Exam time: 1126 hours. [...] Emre Birmingham MD, 04/22/2024 11:39 AM us Meredithdale Canales DO GENERAL IMAGING Final Re sult * LACTIC ACID W REFLEX (SEPSIS) (04/22/2024 11:37 AM SURFACING TECHNICIAN) LACTIC ACID VENOUS 1.5 0.4 - 2.0 MMOL/L 04/22/2024 12:27 PM SURFACING TECHNICIAN [facility] 04/22/2024 11:3 7 AM SURFACING TECHNICIAN us Meredith Canales DO LABORATORY Final Re sult [facility] [address] [place] [address], * (ABNORMAL) PRO-BRAIN NATRIURETIC PEPTIDE (04/22/2024 11:37 AM SURFACING TECHNICIAN) PRO-B TYPE NATRIURETIC PEPTIDE 152(H) <125 PG/ML 04/22/2024 1:04 PM SURFACING TECHNICIAN [facility] Comment: CUT POINTS ESTABLISHED BY [...] FOR ACUTE CHF. 04/22/2024 11:3 7 AM SURFACING TECHNICIAN us Meredithdale Canales DO LABORATORY Final Re sult [facility] [address] [place] [address], * TYPE & SCREEN (04/22/2024 11:37 AM SURFACING TECHNICIAN) ABO/RH A POSITIVE 04/22/2024 12:32 PM SURFACING TECHNICIAN [facility] ANTIBODY SCREEN NEGATIVE 04/22/2024 12:32 PM SURFACING TECHNICIAN [facility] SAMPLE EXPIRATION 04/25/2024,2 359 04/22/2024 12:32 PM SURFACING TECHNICIAN [facility] 04/22/2024 11:3 7 AM SURFACING TECHNICIAN us Meredithzenon Canales DO BLOOD BANK TEST ORDERABL ES Final Result Performing Organization Address [facility] Co de Phone Number [facility] 12 [id number]|2024-07-18 12:54:00|2024-07-18 12:54:00|XMS_ITS|BKG DAEMON|External Medical Summaries|[id number]|" Clinical Summary Created on: July 18, 2024 Radha Larios : 11/29/1941 Sex: Female Author Organization [facility] Address [address] [place] [id number] Care Team Providers Care Local Combination Truck Driver Name Role Phone Chema Urbina MD Primary Care Provider Allergies Active Allergy Reactions Criticality Noted Date Comments Caffeine Agitation,Anxiety Low 08/06/2019 Gabapentin Muscle pain Medium 08/06/2019 Pregabalin Hallucinations Medium 08/06/2019 Rosuvastatin Other (See comments) ,Muscle pain Medium 09/24/2018 Soreness in legs Soreness in legs Medications cranberry extract 200 mg capsule Take 4,200 mg by mouth once. Active dfoty1-egzF1-A 08-C-SE-fish oil [id number] nc-zi-rgj-mcg capsule Take 600 mcg by mouth 3 (three) times a week. Active omeprazole (PriLOSEC) 40 mg capsule Take 1 capsule (40 mg total) by mouth daily as needed Active REPATHA SURECLICK 140 mg/mL pen injector INJECT 1 ML(CC) SUB Q EVERY 2 WEEKS IN THE ABDOMEN THIGH OR OURTER AREA OF UPPER ARM (ROTATE SITES) 0 09/22/19 19 Active Eliquis 5 mg tablet Take 1 tablet (5 mg total) by mouth every 12 (twelve) hours 180 tablet 3 10/30/19 21 Active traMADoL (ULTRAM) 50 mg tablet Take 1 tablet (50 mg total) by mouth every 8 (eight) hours as needed for pain 30 tablet 04/22/19 22 Active Additional Information Patient not taking.Reported on 02/13/2024 HYDROcodone-ac etaminophen (NORCO) 5-325 mg per tabletIndicati ons:Pain Take 1 tablet by mouth every 8 (eight) hours as needed for pain 90 tablet 11/12/19 22 Active Additional Information Patient not taking.Reported on 02/13/2024 ipratropium (ATROVENT) 42 mcg (0.06 %) nasal spray Administer 2 sprays into each nostril daily 04/17/19 24 Active amoxicillin-cl avulanate (AUGMENTIN) 875-125 mg per tablet Take 1 tablet by mouth 2 (two) times a day 02/05/20 24 Active sotaloL (BETAPACE) 80 mg tablet TAKE 1/2 (ONE-HALF) TABLET BY MOUTH EVERY 12 HOURS 90 tablet 06/29/19 25 Active sotaloL (BETAPACE) 80 mg tablet TAKE 1/2 (ONE-HALF) TABLET BY MOUTH EVERY 12 HOURS 90 tablet 3 07/18/19 24 025 Discontinued Active Problems Problem Noted Date Diagnosed Date Sacroiliitis 02/01/2022 DDD (degenerative disc disease), lumbar 02/02/20 Chronic pain syndrome 02/01/2022 Atrial flutter, paroxysmal 10/29/2020 Lumbar radiculopathy 02/12/2016 Lumbago 03/31/2014 Surgical History Surgery Date Site/Laterality Comments BACK SURGERY HYSTERECTOMY APPENDECTOMY CHOLECYSTECTOMY Medical History Medical History Date Comments Gastric reflux Rheumatoid arthritis (HCC) Appendicitis Pulmonary embolism (HCC) Low back pain Family History Medical History Relation Name Comments Hypertension Father Family history of hypertension - (Added by TW Conv) Stroke Father Family history of cerebrovascular accident - (Added by TW Conv) Arthritis Mother Family history of arthritis - (Added by TW Conv) Hypertension Mother Relation Name Status Comments Father Mother Social History Tobacco Use Types Packs/Day Years Used Date Smoking Tobacco: Never Smokeless Tobacco: Never Tobacco Cessation:Counseling Given: Not Answered Alcohol Use Standard Drinks/Week Comments Yes 0 (1 standard drink = 0.6 oz pur e alcohol) AUDIT-C Answer Date Recorded Q1: How often do you have a drink containing alc ohol? Monthly or less 02/01/2022 Average Number of Drinks Not on file 022 Frequency of Binge Drinking Not on file 01/05 Comments No Sex and Gender Information Value Date Recorded Sex Assigned at Not on file Legal Sex Female 3:29 PM SURFACING TECHNICIAN Gender Identity Not on file Sexual Orientation Not on file Occupation Industry Job Start Date Job End Date retired Not on file Not on file Not on file Obstetrics History Last Filed Vital Signs Vital Sign Reading Time Taken Comments Blood Pressure 118/80 02/13/2024 10:43 AM SURFACING TECHNICIAN Pulse 70 02/13/2024 10:43 AM SURFACING TECHNICIAN Temperature 36.7 C (98 F) 02/01/2022 1:20 PM SURFACING TECHNICIAN Respiratory Rate 15 02/01/2022 3:09 PM SURFACING TECHNICIAN Oxygen Saturation 95% 02/13/2024 10:43 AM SURFACING TECHNICIAN Inhaled Oxygen Concentration - - Weight 71.2 kg (157 lb) 02/13/2024 10:43 AM SURFACING TECHNICIAN Height 167.6 cm (5' 6 ) 02/13/2024 10:43 AM SURFACING TECHNICIAN Body Mass Index 25.34 02/13/2024 10:43 AM SURFACING TECHNICIAN Plan of Treatment Health Maintenance Due Date Last Done Comments Depression Screening 11/29/1941 Osteoporosis Screening-Bone Density Scan 11/29/1941 Hepatitis B Screening 11/30/1959 Zoster Vaccine (1 of 2) 11/30/1991 Pneumococcal vaccine 65+ (2 of 2 - PCV) 12/31/2003 12/30/2002 Well Visit 65+ 11/29/2006 DTaP/Tdap/Td Vaccine (2 - Td or Tdap) 10/24/2021 10/25/2011 Fall Risk Assessment 02/01/2023 02/01/2022, 03/15/2021, 11/29/2019, Additional history exists Influenza Vaccine (Season Ended) 2024 12/06/2018, 12/04/2017, 12/09/2016, Additional history exists Goals Goal Patient Goal Type Associated Problems Recent Progress Patient-Stated? Author CCM Chronic Pain Care Plan Chronic Care Management No change(09/24 1:52 PM CDT) No Selene Dumont, RN Note: Problem: Chronic Pain Goals: 1. Minimize further functional decline 2. Maximize quality of life 3. Control pain Strategies: - Activity/exercise program recommendation - Conservative stepwise pain medicine strategy with multi-disciplinary approach - Recommend healthy lifestyle strategies and compensatory methods as needed Reduce the likelihood of falling Lifestyle No Selene Dumont, RN Note: Below are four things you can do to prevent falls: 1. Begin an exercise program to improve your leg strength & balance 2. Ask your doctor or pharmacist to review your medicines 3. Get annual eye check-ups & update your eyeglasses 4. Make your home safer by: Removing clutter & tripping hazards Putting railings on all stairs & adding grab bars in the bathroom Having good lighting, especially on stairs Contact your local community or senior center for information on exercise, fall prevention programs, or options for improving home safety. Insurance [facility]IC[facility] Address: [address] [address] [place] [address] [facility] MED[facility] Care Teams Local Combination Truck Driver Relationship Specialty Start Date End Date Chema Urbina MD PCP - General Family Practice 03/28/18 "
--- OUTSIDE RECORDS SUMMARY | 2024-07-18 12:50 | XMS_ITS | Encounter Summary ---
Author Organization [facility] Address [address] [place] [address] Phone Care Team Providers Care Sports Marketing Coordinator Name Role Phone Shyanne Paz NP Primary Care Provider [phone] Reason for Referral * MRI/CAT/PET Scan (Routine) - Pending Review Specialty Diagnoses / Procedures Referred By Marie coy Referred To Contact Radiology Diagnoses Liver lesion Alcoholic cirrhosis of liver without ascites (HCC) Procedures MRI Abdomen Liver W WO Contrast Vicky Goel MD [address] [place] [address] Phone: tel: fax: [address] [phone] Referral ID Status Reason Start Date Expiration Date V isits Requested Visits Authorized [id number] Pending Review 07/16/2024 08/15/2025 1 1 Encounter Details Date Type Department Care Team (Late st Contact Info) Description 07/16/2024 Results Follow-Up [facility] Gastroenterology [facility] [address] [place] [address] [place] [address] Lennie Mathews Alcoholic cirrhosis of [...] on file Legal Sex Male 10:15 PM BENCH SCIENTIST Gender Identity Not on file Sexual Orientation Not on file documented as of this encounter Miscellaneous Notes * Telephone Encounter - Lennie Mathews - 07/17/2024 12:47 PM CDT Pt called back after leaving VM on scheduled MRI as same day as OV. Pt was scheduling in October and like apt has been changed to 12/02/24. Pt understood apt details on 12/02/24 at [facility] at 9:15am. Mailed instructions to pt's home address. ----- Message from Nurse Noemi Conklin sent at 04/10/2024 9:43 AM BENCH SCIENTIST ----- Regarding: MRI Please coordinate repeat MRI with ROV on 10/14/24. (Pt would need scheduled after ROV appt due to drive). Dx: LR3 lesion, cirrhosis ----- Message ----- From: Vicky Goel MD Sent: 04/09/2024 2:50 PM BENCH SCIENTIST To: Noemi Miranda RN Thank you! Predominantly indirect which is reassuring ----- Message ----- From: Noemi Miranda RN Sent: 04/09/2024 2:39 PM BENCH SCIENTIST To: Vicky Goel MD Direct Bili was added and final. ----- Message ----- From: Vicky Goel MD Sent: 04/09/2024 12:02 PM BENCH SCIENTIST To: Noemi Miranda RN Labs and MRI [...] years Sex: Male at 04/08/2024 12:59 PM * Telephone Encounter - Lennie Mathews - 07/16/2024 9:43 AM CDT Scheduled MRI at [facility] on 12/02/24 at 9:15am/8:45am arrival. Left VM with pt's number for call back. ----- Message from Nurse Noemi Conklin sent at 04/10/2024 9:43 AM BENCH SCIENTIST ----- Regarding: MRI Please coordinate repeat MRI with ROV on 10/14/24. (Pt would need scheduled after ROV appt due to drive). Dx: LR3 lesion, cirrhosis ----- Message ----- From: Vicky Goel MD Sent: 04/09/2024 2:50 PM BENCH SCIENTIST To: Noemi Miranda RN Thank you! Predominantly indirect which is reassuring ----- Message ----- From: Noemi Miranda RN Sent: 04/09/2024 2:39 PM BENCH SCIENTIST To: Vicky Goel MD Direct Bili was added and final. ----- Message ----- From: Vicky Goel MD Sent: 04/09/2024 12:02 PM BENCH SCIENTIST To: Noemi Miranda RN Labs and MRI [...] liver documented in this encounter Care Teams Sports Marketing Coordinator Relationship Specialty Start Date End Date Shyanne Paz NP [facility] [place] [address] PCP - General Family Medicine 08/22/23 documented as of this encounter
[2024-07-18 14:27] LABS: Source Synovial Fluid Rt Knee Syn Fluid
[2024-07-18 14:30] LABS: Color Synovial Fluid Other (Colorless)
[2024-07-18 14:31] LABS: Appearance Synovial Fluid Cloudy (Clear); Lymphocytes Synovial Fluid 84 %; Monocytes Synovial Fluid 1 %; Neutrophils Synovial Fluid 15 % (0-25); Nucleated Cell Synovial Fluid 3496 /uL (0-200)
[2024-07-24 09:53] LABS: RBC Synovial Fluid 15000 /uL (0-0)
== END 2024-07-18 12:41 | disposition home or self-care (01) ==
PROVIDERS: Visit Provider Orthopaedic Surgery
DX: M25.461 Effusion, right knee (principal)
CPT/HCPCS: 87070; 87075; 87205; 89051